=== PATIENT | female | born 1960 | race Caucasian/White ===

== ENCOUNTER → 2020-08-23 09:56 | Outpatient (BNVA) | payer MEDICARE, SELFPAY | PROVIDERS: PCP Nurse Practitioner Family; Referring Provider Orthopaedic Surgery; Visit Provider Nurse Practitioner Adult Health | DX: G56.23 Lesion of ulnar nerve, bilateral upper limbs (principal); I10 Essential (primary) hypertension | CPT/HCPCS: 95910; 99203 ==

== ENCOUNTER 2021-01-08 03:36 | Outpatient (CLI) | payer MEDICARE, SELFPAY ==
[2021-01-08 12:33] LABS: Calculated LDL 87 mg/dL (<100); Cholesterol 179 mg/dL (<200); HDL Cholesterol 63 mg/dL (40-60); Triglyceride 147 mg/dL (<150)
[2021-01-08 12:40] LABS: Hemoglobin A1C 5.7 % (<5.7)
== END 2021-01-08 03:37 | disposition home or self-care (01) ==
LOC: LOS 03:36
PROVIDERS: PCP Nurse Practitioner Family; Visit Provider Nurse Practitioner Family
DX: E78.5 Hyperlipidemia, unspecified (principal); R73.9 Hyperglycemia, unspecified
CPT/HCPCS: 36415; 80061; 83036

== ENCOUNTER 2021-03-23 03:34 | Outpatient (CLI) | payer MEDICARE, SELFPAY ==
--- NOTE | 2021-03-23 | DI.CT_ITS ---
Exam(s) CT NECK W EXAM: CT NECK W CLINICAL HISTORY: ASYMMETRIC TONSILS, J35.8 TECHNIQUE: COMPARISON: No exams were available for comparison FINDINGS: CT examination of the cervical region was performed with bolus infusion of 100 cc of Omnipaque 350. Images obtained through the lung apices are unremarkable. Visualized portions of aortic arch and pul monary arterial vasculature appear normal. No superior mediastinal adenopathy. Visualized portions of the brain are unremarkable. The orbital contents appear normal. Paranasal si nuses and mastoid air cells are clear as visualized. There is no abnormality seen involving the salivary glands. Unremarkable appearance of the tonsils a nd tracheal laryngeal structures. No tonsillar mass or abscess identified. No vascular abnormality seen. No supraclavicular adenopathy. No cervical adenopathy. IMPRESSION: Negative CT examination of the cervical region, no evidence of a tonsillar mass or abscess. If there is a high clinical suspicion of tonsillar mass direct visualization and/or biopsy may be considered. RADIATION DOSE DELIVERED: 592mGy.cm Total DLP RADIATION OPTIMIZATION: All CT scans at this facility use at least one of these dose optimization te chniques: automated exposure control; mA and/or kV adjustment per patient size (includes targeted exa ms where dose is matched to clinical indication); or iterative reconstruction.
[2021-03-23 14:44] LABS: BUN 24 mg/dL (7-18); CREATININE 1.1 mg/dL (0.55-1.02)
[2021-03-23] MEDS: Omnipaque 350 MG/ML 100 ML BTL IV (15:05)
[2021-03-23] MEDS: Normal Saline - Diluent 50 ML VIAL IV (15:07)
[2021-03-23] MEDS: Normal Saline Flush 10 ML SYR IVP (15:08)
[2021-03-27 14:00] LABS: SS-A Antibody 1.7 Units (<20.0)
[2021-03-27 14:03] LABS: SS-B (La) Ab, IgG 2.2 Units (<20.0)
== END 2021-03-23 03:54 ==
PROVIDERS: PCP Nurse Practitioner Family; Visit Provider Physician Assistant
DX: J35.8 Other chronic diseases of tonsils and adenoids (principal); K11.7 Disturbances of salivary secretion
CPT/HCPCS: 70491; 84520; 82565; 86235; J3490

== ENCOUNTER 2021-08-02 02:33 | Outpatient (CLI) | payer MEDICARE, SELFPAY ==
[2021-08-02 13:04] LABS: TSH 1.18 uIU/mL (0.36-3.74)
[2021-08-02 13:14] LABS: Hemoglobin A1C 5.6 % (<5.7)
[2021-08-02 13:15] LABS: Vitamin B12 319 pg/mL (193-986)
[2021-08-02 13:16] LABS: Vitamin D 25 Total 18.1 ng/mL (30-100)
== END 2021-08-02 02:34 | disposition home or self-care (01) ==
LOC: LOS 02:34
PROVIDERS: PCP Nurse Practitioner Family; Visit Provider Family Medicine
DX: Z79.899 Other long term (current) drug therapy; G43.119 Migraine with aura, intractable, without status migrainosus; R20.2 Paresthesia of skin; R63.5 Abnormal weight gain; Z13.1 Encounter for screening for diabetes mellitus
CPT/HCPCS: 36415; 82306; 82607; 83036; 84443

== ENCOUNTER 2021-08-27 01:59 | Outpatient (CLI) | payer MEDICARE, SELFPAY ==
[2021-08-27 12:40] LABS: Abs Immature Grans 0.01 10^3/uL (0.0-0.06); Absolute Basophil Count 0.03 10^3/uL (0.0-0.2); Absolute Eosinophil Count 0.17 10^3/uL (0.0-0.7); Absolute Lymphocyte Count 0.95 10^3/uL (1.2-3.4); Absolute Monocyte Count 0.42 10^3/uL (0.1-0.8); Absolute Neutrophil Count 3.52 10^3/uL (1.2-6.7); Basophils % 0.6; Eosinophils % 3.3; HCT 36.1 % (36.0-46.0); HGB 11.1 g/dL (11.2-15.7); Immature Grans % 0.2; Lymphocytes % 18.6; MCH 29.4 pg (27.0-33.0); MCHC 30.7 % (32.0-36.0); MCV 95.8 fL (80-95); Monocytes % 8.2; Neutrophils % 69.1; Nucleated RBC 0 %; Platelet Count 200 10^3/uL (130-400); RBC 3.77 10^6/uL (3.93-5.22); RDW-SD 52.8 fL
[2021-08-27 13:07] LABS: Hemoglobin A1C 5.5 % (<5.7)
[2021-08-27 13:32] LABS: Vitamin D 25 Total 17.7 ng/mL (30-100)
[2021-08-27 13:49] LABS: ALT 17 U/L (14-59); AST 12 U/L (15-37); Albumin 3.7 g/dL (3.4-5.0); Alkaline Phosphatase 76 U/L (46-116); BUN 29 mg/dL (7-18); Bilirubin, Total 0.3 mg/dL (0.2-1.0); CREATININE 1.1 mg/dL (0.55-1.02); Calcium 8.7 mg/dL (8.5-10.1); Calculated LDL 103 mg/dL (<100); Chloride 110 mmol/L (98-107); Cholesterol 183 mg/dL (<200); Estimated GFR 50.33 (mL/min/1.73m2); Folate > 20.0 ng/mL (8.6-20.0); Glucose 103 mg/dL (74-106); HDL Cholesterol 61 mg/dL (40-60); Magnesium 1.8 mg/dL (1.8-2.4); Potassium 3.6 mmol/L (3.5-5.1); Sodium 146 mmol/L (136-145); TSH 1.31 uIU/mL (0.36-3.74); Total Protein 6.8 g/dL (6.4-8.2); Triglyceride 97 mg/dL (<150); Vitamin B12 289 pg/mL (193-986)
[2021-08-27 14:05] LABS: FREE T4 0.94 ng/dL (0.76-1.46)
[2021-08-27 16:31] LABS: T3,Free 2.9 pg/mL (2.8-5.3)
== END 2021-08-27 02:00 | disposition home or self-care (01) ==
LOC: LOS 01:59
PROVIDERS: PCP Nurse Practitioner Family; Visit Provider Psychiatry & Neurology Psychiatry
DX: Z79.899 Other long term (current) drug therapy (principal)
CPT/HCPCS: 36415; 80053; 80061; 82306; 82607; 82728; 82746; 83036; 83735; 84439; 84443; 84481; 85025; 86140

== ENCOUNTER 2021-09-28 00:38 | Outpatient (CLI) | payer MEDICARE, SELFPAY ==
--- NOTE | 2021-09-28 07:00 | DI.RAD_ITS ---
Exam(s) XR HIP RT COMPLETE AP PELVIS EXAM: XR HIP RT COMPLETE AP PELVIS CLINICAL HISTORY: right hip pain,M25.551, ACUTE. TECHNIQUE: 2D digital imaging was performed of the right hip. Two images were obtained. AP pelvis a nd lateral right hip views were obtained. COMPARISON: No exams were available for comparison FINDINGS: BONES: No acute fracture is present. No bony destructive lesion is seen. Postsurgical changes are see n in the lumbosacral spine. JOINTS: No dislocation present. There are mild degenerative changes of the hips bilaterally. There a lso mild degenerative changes seen at the sacroiliac joints. The symphysis pubis appears unremarkabl e. SOFT TISSUE: Normal. IMPRESSION: Mild degenerative changes in the hips bilaterally. DATA REPOSITORY: RADIATION DOSE DELIVERED:
== END 2021-09-28 00:58 ==
PROVIDERS: PCP Nurse Practitioner Family; Visit Provider Nurse Practitioner Family
DX: M25.551 Pain in right hip (principal)
CPT/HCPCS: 73502

== ENCOUNTER 2021-10-04 01:49 | Outpatient (CLI) | payer MEDICARE, SELFPAY ==
--- NOTE | 2021-10-04 10:02 | DI.MAMMO_ITS ---
Exam(s) MAMMO SCREENING EXAM: MAMMO SCREENING CLINICAL HISTORY: screening,Z12.39. TECHNIQUE: Bilateral full field digital CC and MLO mammographic images were obtained with 3D tomosyn thesis and utilizing computer aided detection (CAD). COMPARISON: Prior outside mammograms dating back to 2015, the most recent being August 2020. Significant family history. Apparently both her mother and sister were diagnosed with breast cancer at age 57. This patient is 61 years old. FINDINGS: There has been no significant change in the appearance and distribution of the fibroglandular tissue. There are no new significant radiograph findings in left breast In the right breast there is an asymmetric density-possible nodule located medial of center approxima tely 8 cm in from the nipple, measuring 6 x5 millimeters. This appears somewhat more evident on prio r studies. Spot compression view and ultrasound recommended. There are no malignant-appearing micro calcification groups in this region. Scattered benign-appearing microcalcifications are noted in the breasts. There is no significant architectural distortion nor skin thickening-retraction. IMPRESSION: 1. No radiographic evidence of malignancy in left breast. 2. Asymmetric density-possible nodule in the right breast, as described above. Spot compression view and ultrasound recommended BI-RADS Category 0 - Assessment Incomplete: Need additional imaging evaluation Breast Density - Category B - Scattered areas of fibroglandular density Breast density Category C or D implies that the patient has dense breast tissue. Dense breast tissue can make it harder to find cancer on a mammogram. Dense breast tissue is also associated with an incr eased risk of breast cancer. This information about the result of the mammogram report was provided to the patient to raise their awareness. Use this report when you speak with the patient about their risks for breast cancer, which includes their family history. At that time, you may recommend additional screening tests (Ultrasoun d or MRI) as these tests may add significant information. A negative radiographic report should not delay biopsy if a dominant or clinically suspicious mass is present. Up to ten percent of cancers are not identified on mammography. A negative report may reinforce clinical impression. Adenosis and dense breasts may obscure an underlying neoplasm. False positive reports average 6 to 10%. Patient will receive a letter notifying them of these results.
== END 2021-10-04 02:09 ==
PROVIDERS: PCP Nurse Practitioner Family; Visit Provider Nurse Practitioner Family
DX: Z12.31 Encounter for screening mammogram for malignant neoplasm of breast (principal); R92.8 Other abnormal and inconclusive findings on diagnostic imaging of breast
CPT/HCPCS: 77063; 77067

== ENCOUNTER 2021-10-16 01:56 | Outpatient (CLI) | payer MEDICARE, SELFPAY ==
--- NOTE | 2021-10-16 14:00 | DI.US_ITS ---
Exam(s) MG MAMMO SCREEN CALL BACK UNI US BREAST RT LIMITED EXAM: US BREAST RT LIMITED CLINICAL HISTORY: ASYMMETRIC DENSITY-POSSIBLE NODULE, RT BREAST TECHNIQUE: Ultrasound performed using standard protocol. COMPARISON: No exams were available for comparison FINDINGS: Additional mammographic views of the right breast and right breast ultrasound are interpreted in conj unction. These examinations were obtained to evaluate area of nodularity noted on recent mammogram. This had also been present on prior mammogram of August 2020 from [facility] but was s maller at that time. On today's examination the spot compression views confirm a persistent ovoid well-circumscribed mass in the lower inner quadrant of the breast. Some portions of the border of the mass were obscured. B reast ultrasound shows a 2 o'clock position nodule 8 cm from the nipple which is of mixed cystic and solid echogenicity with some heterogeneity of echogenicity and mild irregularity of the border of the lesion, the lesion is about 5 millimeters in diameter. No significant vascularity identified on Dop pler evaluation. IMPRESSION: Indeterminate right breast lesion as described above, ultrasound-guided biopsy recommended to exclud e malignancy. BI-RADS Cat 4 - Suspicious Abnormality: Biopsy should be considered Breast Density - Category B - Scattered areas of fibroglandular density DATA REPOSITORY:
== END 2021-10-16 02:16 ==
PROVIDERS: PCP Nurse Practitioner Family; Visit Provider Nurse Practitioner Family
DX: R92.8 Other abnormal and inconclusive findings on diagnostic imaging of breast (principal)
CPT/HCPCS: 76642; 77063; 77067

== ENCOUNTER 2021-10-29 01:51 | Outpatient (CLI) | payer MEDICARE, SELFPAY ==
--- NOTE | 2021-10-29 | DI.US_ITS ---
Exam(s) US NEEDLE LOCAL BREAST WO RAD EXAM: US NEEDLE LOCAL BREAST WO RAD CLINICAL HISTORY: RT BREAST MASS, ULTRASOUND GUIDED BIOPSY. Right Breast. Left Breast. TECHNIQUE: Ultrasound was p provided for Dr. León for guidance with performing breast biopsy. COMPARISON: US US BREAST RT LIMITED from 10/16/2021 FINDINGS: The lesion identified on the prior exam is again noted today in the 2 o'clock position 8 cm from the nipple. Please see procedure note for details.
--- NOTE | 2021-10-29 14:50 | BREAST_PTH ---
PATIENT: Alina Douglass LOC: [facility] U#:[id number] AGE/SX: 61/F ROOM: RE10/29/[address]: Rossy León MD : 1960 BED: DIS: 10/29/2021 SPEC #: [id number] RECD: 10/29/21 16:47 STATUS: BALDO REAlex #: [id number] DEONTE: 10/29/21 14:[address]: Rossy León DEPT: Surgical Specimen RECD BY: Deborah Boogie ENTERED: 10/29/21 16:47 SP TYPE: Breast OTHR DR: Husam Krishna, LEE Tissues: 1 - BREAST BX NEEDLE Procedures: GROSS AND MICRO LEVEL 4 Comments: [id number]
--- NOTE | 2021-10-29 15:02 | OPPNE_ITS ---
Date of service: 10/29/21 Time of Service: 14:30 Procedure Note Date of procedure: 10/29/21 Procedure: US guided right Breast Mass Core needle biopsy Surgeon/Proceduralist/Physician: Rossy León Procedure Diagnosis: Right Breast mass Procedure Description: Pre-op Dx: Right Breast Mass Post-op Dx: same Procedure: US guided Right Breast mass Core needle biopsy Surgeon: Donna León MD Anesthesia: Local anesthesia with 1% Lidocaine Blood loss: 2 cc Specimen: Core needle biopsy x2 Complications: no immediate complications Procedure: After informed consent was obtained the patient was placed in a supine position. US was done of the Right Breast and the lesion was localized by the US tech. The skin was cleaned with alcohol and infiltrated with the above local anesthetic. The skin was then prepped. An incision was made with an 11 blade. Using a 14 gauge core needle 2 specimens were removed and placed on telfa and placed in formalin. Next under US guidence a small titanium clip was placed into the lesion. The skin was cleaned and dried and a band aid was applied. The patient tolerated the procedure well and there were no i mmediate complications.
== END 2021-10-29 02:11 ==
PROVIDERS: PCP Nurse Practitioner Family; Visit Provider Surgery
DX: N63.12 Unspecified lump in the right breast, upper inner quadrant (principal); N60.01 Solitary cyst of right breast
CPT/HCPCS: 19083; 88305; 76942

== ENCOUNTER 2021-11-29 02:11 | Outpatient (CLI) | payer MEDICARE, SELFPAY ==
--- NOTE | 2021-11-29 | DI.CT_ITS ---
Exam(s) CT NECK W EXAM: CT NECK W CLINICAL HISTORY: NECK MASS, R22.1. TECHNIQUE: Imaging Protocol: Axial CT angiography was performed with multi-slice acquisition and mu lti-planar and/or 3D reconstructions. CONTRAST MATERIAL: Intravenous: Omnipaque 350 Contrast volume:structured data in ml COMPARISON: CT CT NECK W from 03/23/2021 FINDINGS: Nasopharynx: Unremarkable Oropharynx: The uvula is midline. No obvious asymmetric tonsil mass. No abscess seen. Hypopharynx: Vallecula and epiglottis appear unremarkable. Aryepiglottic folds unremarkable. Vocal cords: No evidence of mass. Subglottic airway also appears unremarkable. Thyroid gland: Normal size. No obvious nodules. Salivary glands: There are no masses nor calculi evident in the parotid glands nor in the submandibul ar glands. Lymph nodes: There is no pathologic lymphadenopathy evident in the neck and supraclavicular regions. Vascular: Opacified internal jugular veins are patent bilaterally. Carotid arteries are not opacifie d on this study. TANO: There is a metallic marker on the skin on the left side of the neck. There is no evidence of saldana bcutaneous nor deeper mass nor fluid collection at this level. Also no asymmetric thickening of the platysma at this level. Visualized lung apices: Unremarkable. IMPRESSION: 1. No significant findings on this contrast infused study of the soft tissues of neck. 2. There is no abnormal finding subjacent to a metallic skin marker on the left side of the neck. RADIATION DOSE DELIVERED: 519.02mGy.cm Total DLP DATA REPOSITORY: All CT scans at this facility are submitted to the National Radiology Data Registry (NRDR) Dose Index Registry (DIR) with the [employer] ([employer]). RADIATION OPTIMIZATION: All CT scans at this facility use at least one of these dose optimization te chniques: automated exposure control; mA and/or kV adjustment per patient size (includes targeted exa ms where dose is matched to clinical indication); or iterative reconstruction.
[2021-11-29 07:44] LABS: BUN 29 mg/dL (7-18); CREATININE 1.3 mg/dL (0.55-1.02)
[2021-11-29] MEDS: Omnipaque 350 MG/ML 100 ML BTL IJ (08:31)
== END 2021-11-29 02:31 ==
PROVIDERS: PCP Nurse Practitioner Family; Visit Provider Physician Assistant
DX: R22.1 Localized swelling, mass and lump, neck (principal); Z01.812 Encounter for preprocedural laboratory examination
CPT/HCPCS: 70491; 84520; 82565; J3490

== ENCOUNTER → 2022-01-30 08:16 | Outpatient (BNVA) | payer MEDICARE, SELFPAY | PROVIDERS: PCP Nurse Practitioner Family; Referring Provider Nurse Practitioner Family; Visit Provider Student in an Organized Health Care Education/Training Program | DX: S73.191A Other sprain of right hip, initial encounter (principal); X58.XXXA Exposure to other specified factors, initial encounter; M70.61 Trochanteric bursitis, right hip; M16.11 Unilateral primary osteoarthritis, right hip | CPT/HCPCS: 99214 ==

== ENCOUNTER 2022-02-01 02:34 | Outpatient (CLI) | payer MEDICARE, SELFPAY ==
[2022-02-01 17:06] LABS: COMMENT (LAB VIEW ONLY) 156.09 mg/dL; CREATININE 1.3 mg/dL (0.55-1.02); Microalb ug/mg Crea 5.3 ug/mg Cr
== END 2022-02-01 02:35 | disposition home or self-care (01) ==
LOC: LBO 02:34
PROVIDERS: PCP Nurse Practitioner Family; Visit Provider Nurse Practitioner Family
DX: N18.9 Chronic kidney disease, unspecified (principal)
CPT/HCPCS: 36415; 82043; 82565; 82570

== ENCOUNTER 2022-02-04 01:24 | Outpatient (CLI) | payer MEDICARE, SELFPAY ==
--- NOTE | 2022-02-04 | DI.MAMMO_ITS ---
Exam(s) MAMMO DIAGNOSTIC UNI US BREAST RT COMPLETE EXAM: MAMMO DIAGNOSTIC UNI CLINICAL HISTORY: RIGHT BREAST ? BX NOT OF MASS. COMPARISON: Mammograms from 2016 through September 2021 Ultrasound September 2021 and ultrasound-guided biopsy images of 29 October 2021. TECHNIQUE: Craniocaudal and mediolateral oblique Full Field Digital Mammography views of the right b reast with Computer Aided Diagnosis followed by Tomosynthesis and right breast ultrasound. FINDINGS: Mammography/Tomosynthesis: Masses/Architectural Distortion: A biopsy marker clip is noted is lying anterior to the previously no jem nodule. There has been no change in size or appearance of the nodule.. Microcalcifications: No suspicious pleomorphic-type are seen. Skin Thickening/Nipple Retraction: None. Right breast US: Echotexture: Normal appearance of the glandular tissue. Shadowing: No suspicious foci. Cyst: None. Solid lesions: Vague hypoechoic lesion, not easily discernible from adjacent tissue without harmonics , measured at 6 x 5 millimeters. The previously noted cystic component of the lesion is not seen. Ductal dilation: None. IMPRESSION: 1. Biopsy marker lies anterior to the biopsied nodule. This could indicate clip migration versus mis sing the target lesion. 2. BI-RADS Category 3 - Probably Benign Finding: Recommend follow-up imaging in 3 months Breast Density - Category B - Scattered areas of fibroglandular density Breast density category C or D implies that the patient has dense breast tissue. Dense breast tissue is very common and is not abnormal but dense breast tissue can make it harder to find cancer on a ma mmogram. Also, dense breast tissue may increase their breast cancer risk. This information about the result of the mammogram report was provided to the patient to raise their awareness. Use this report when you speak with the patient about their risks for breast cancer, which includes their family hist ory. At that time, you may recommend for more screening tests (Ultrasound or MRI) as they might be us eful based on their risk. A negative radiographic report should not delay biopsy if a dominant or clinically suspicious mass is present. Up to ten percent of cancers are not identified on mammography. A negative report may reinforce clinical impression. Adenosis and dense breasts may obscure an underlying neoplasm. False positive reports average 6 to 10%. Patient will receive a letter notifying them of these results.
== END 2022-02-04 01:44 ==
PROVIDERS: PCP Nurse Practitioner Family; Visit Provider Surgery
DX: N63.12 Unspecified lump in the right breast, upper inner quadrant (principal); Z98.890 Other specified postprocedural states
CPT/HCPCS: 76642; 77061; 77065; G0279

== ENCOUNTER 2022-02-14 02:04 | Outpatient (CLI) | payer MEDICARE, SELFPAY ==
--- NOTE | 2022-02-14 06:45 | DI.MRI_ITS ---
Exam(s) MR LOWER JOINT RT WO EXAM: MR LOWER JOINT RT WO CLINICAL HISTORY: R HIP PAIN,labral tear,trochanteric bursitis,m70.61,s73.191a. TECHNIQUE: Multiplanar multisequence MRI was performed. COMPARISON: No exams were available for comparison FINDINGS: MR examination of the hip was performed according to the usual protocol. No pelvic mass or adenopathy seen. No significant bony signal abnormality seen. No significant hip joint effusion, the labrum appears i ntact as visualized on this noncontrast study. There is abnormal signal in gluteus minimus and medius tendons with partial tearing and tendinosis ne ar their insertions on the greater trochanter. There is a small quantity of fluid in the trochanteri c bursa. There is abnormal signal in gluteus ayush muscle and tendon as well without an obvious te ar. Note is also made of abnormal signal in vastus intermedius and/or lateralis which may represent infla mmation or tearing at and inferior to the level of the greater trochanter. No other significant findings. Left hip imaging is unremarkable except for apparent slight trochanteric bursitis. High-resolution i maging of the left hip was not obtained.. IMPRESSION: Gluteus medius and minimus tendon partial-thickness tearing without retraction, trochanteric bursitis and gluteus ayush tendinosis also noted. Possible involvement also of superior-most portions of v astus intermedius and/or lateralis with inflammation or minor partial thickness tearing as described above. DATA REPOSITORY:
== END 2022-02-14 02:24 ==
PROVIDERS: PCP Nurse Practitioner Family; Visit Provider Student in an Organized Health Care Education/Training Program
DX: M25.551 Pain in right hip (principal); M70.61 Trochanteric bursitis, right hip; S73.191A Other sprain of right hip, initial encounter
CPT/HCPCS: 73721

== ENCOUNTER → 2022-02-26 14:23 | Outpatient (BNVA) | payer MEDICARE, SELFPAY | PROVIDERS: PCP Nurse Practitioner Family; Referring Provider Nurse Practitioner Family; Visit Provider Student in an Organized Health Care Education/Training Program | DX: M70.61 Trochanteric bursitis, right hip (principal); M76.31 Iliotibial band syndrome, right leg; S76.011A Strain of muscle, fascia and tendon of right hip, initial encounter; X58.XXXA Exposure to other specified factors, initial encounter | CPT/HCPCS: 99214 ==

== ENCOUNTER 2022-03-13 04:14 | Outpatient (CLI) | payer MEDICARE, SELFPAY ==
[2022-03-13 10:10] LABS: Source Nasal/Nares
[2022-03-13 14:15] LABS: COVID-19 PCR Negative (Negative)
== END 2022-03-13 04:15 | disposition home or self-care (01) ==
PROVIDERS: PCP Nurse Practitioner Family; Visit Provider Student in an Organized Health Care Education/Training Program
DX: Z20.822 Contact with and (suspected) exposure to COVID-19 (principal); Z01.818 Encounter for other preprocedural examination
CPT/HCPCS: 87635; U0005

== ENCOUNTER 2022-03-15 08:07 | Day surgery (SDC) | payer MEDICARE, SELFPAY ==
[2022-03-15] VITALS (9 sets, daily range): BP systolic 116–152; BP diastolic 54–94; PULSE 47–77; RESP 10–17; TEMP 36.2–36.5; TEMPC 36.3; O2SAT 94–98; BMI 43.0
--- NOTE | 2022-03-15 08:48 | W.ANESPRE ---
General Info Date of Service Date Performed: 03/15/22 Height: 5 ft 4 in Weight: 113.7 kg Body Mass Index (BMI): 43.0 Surgical Procedure: Operation Date: 03/15/22 10:35 Proposed Procedure Side Surgeon p Hip Endoscopy Iliotibial Band Release w/Trochanteric Bursectomy and Gluteal Tendon Repair Right John Estevez MD Meds Allergies and Home Medications Allergies Allergy/AdvReac Type Severity Reaction Status Date / Time morphine Allergy Verified 03/15/22 08:39 Home Medication Medication Instructions Recorded clobetasol 0.05 % topical cream 1 applic topical DAILY 07/10/20 hydroxyzine pamoate 25 mg capsule 25 mg PO TID PRN 07/10/20 bupropion HCl 300 mg 24 hr tablet, 300 mg PO QAM #90 tabs 05/24/21 extended release prazosin 2 mg capsule 2 mg PO QHS #90 caps 05/24/21 zolpidem 10 mg tablet 10 mg PO QHS PRN sleep #90 tabs 10/15/21 fluoxetine 20 mg capsule (Prozac) 30 mg PO DAILY 11/05/21 topiramate 200 mg tablet 300 mg PO DAILY 11/05/21 cetirizine 10 mg tablet 10 mg PO DAILY #90 tabs 11/23/21 loperamide 2 mg capsule 2 mg PO Q6H PRN loose stool #14 11/23/21 caps omeprazole 20 mg capsule,delayed 20 mg PO DAILY #90 caps 11/23/21 release rizatriptan 10 mg disintegrating See Rx Instructions PO .COMPLEX 11/23/21 tablet #60 tabs simvastatin 10 mg tablet 10 mg PO DAILY #90 tabs 11/23/21 verapamil 180 mg 24 hr 180 mg PO DAILY #90 caps 11/23/21 capsule,extended release metoprolol succinate 25 mg 25 mg PO DAILY #90 tabs 12/27/21 tablet,extended release 24 hr Current Visit Medications: Current Medications Generic Name Dose Route Start Last Admin Trade Name Freq PRN Reason Stop Dose Admin Ringer's Solution 1,000 mls @ 100 mls/hr 03/15/22 06:00 IV 03/19/22 23:59 INFUSION JENNIFER Cefazolin Sodium 3 gm in 100 mls @ 200 mls/hr 03/15/22 06:00 Ancef Premix IVPB 03/15/22 16:00 PREOP JENNIFER IV Miscellaneous Supplies 1 each 03/15/22 06:00 Iv Access IV 03/19/22 23:59 DIRECTED JENNIFER Sodium Chloride 0 ml 03/15/22 06:00 Normal Saline Flush 10 Ml Syr IV 03/19/22 23:59 PRN PRN Sodium Chloride 0 ml 03/15/22 06:00 Normal Saline 10 Ml Vial IJ 03/19/22 23:59 DIRECTED PRN Sterile Water 0 ml 03/15/22 06:00 Water,Injection,Sterile 10 Ml Vial IJ 03/19/22 23:59 DIRECTED PRN PFSH Active Problems Active Problems: Problem Status Onset Code Depressive disorder F32.9 Insomnia G47.00 Hypertension I10 Cubital tunnel syndrome, bilateral G56.23 Hyperlipidemia E78.5 Scab R23.4 Asymmetric tonsils J35.8 Low back pain M54.5 Wart B07.9 Weight gain R63.5 Intractable migraine with aura without status migrainosus G43.119 Abnormal mammogram R92.8 Breast mass, right N63.10 Left knee pain M25.562 Arthritis of right hip M16.11 Chronic renal insufficiency N18.9 Trochanteric bursitis of right hip M70.61 Labral tear of right hip joint S73.191A Iliotibial band syndrome of right side M76.31 Tear of right gluteus medius tendon S76.011A Medical History Medical History Atopic dermatitis Congenital anomaly of integument Eating disorder Fibrocystic breast disease in female Fibromyalgia Generalized anxiety disorder GERD (gastroesophageal reflux disease) History of back problems History of palpitations Hyperlipidemia Inflammatory dermatosis Jaw pain Knee pain, left Left hip pain (~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 Loss of appetite Lumbago with sciatica, right side Malaise and fatigue Microscopic colitis Mixed hyperlipidemia Obesity Osteoarthritis of knee Primary osteoarthritis PTSD (post-traumatic stress disorder) Retrograde amnesia Rotator cuff injury (~03/07/20) left Salivary gland disease Sialoadenitis Tinea corporis Well adult health check Surgical History Surgical History (Updated 03/15/22 @ 08:38 by Gilma Weaver, MADDI) Artificial knee joint present H/O abdominal hysterectomy (~1985) H/O bilateral salpingo-oophorectomy (~1985) H/O foot surgery (~2007) LEFT H/O hernia repair H/O total knee replacement 03/03/17 (L) 08/31/10 (R) History of back surgery (~2000) 2000 SPINAL FUSION: L5, S1 WITH METAL History of cholecystectomy (~02/23/11) History of right knee joint replacement History of surgical procedure on mouth (~10/20/17) LEFT Hx of colonoscopy Hx of repair of left rotator cuff Hx of shoulder surgery (~03/07/20) 03/07/20L SHOULDER ARTHROSCOPY W/RCR S/P injection of botulinum toxin (~01/10/17) @ [facility] [place] [facility] [place] Tobacco Smoking/Tobacco Use Status: Former Tobacco Use Passive smoking exposure: Yes Second hand exposure: Yes Alcohol Alcohol Intake: never Substance Use Substance use: Never Substance use type: does not use Vital Signs and Lab Results Vital Signs Most Recent Vital Signs in EMR: Most Recent Vital Signs Temp Pulse Resp BP Pulse Ox 36.4 C L 66 17 125/88 98 03/15/22 08:25 03/15/22 08:25 03/15/22 08:25 03/15/22 08:25 03/15/22 08:25 Lab Results Blood Type / Crossmatch: No Data to Display Complete Blood Count: No Data to Display Complete Metabolic Panel: No Data to Display Liver Function Panel: No Data to Display Coagulation Panel: No Data to Display Cardiac Panel: No Data to Display Arterial Blood Gas: No Data to Display Venous Blood Gas: No Data to Display Pancreas Panel: No Data to Display Thyroid Panel: No Data to Display Infectious Disease: Coronavirus (COVID-19)(PCR) Negative (Negative) 03/13/22 09:54 Coronavirus 2019 Source Nasal/Nares 03/13/22 09:54 Blood Cultures: No Data to Display Toxicology Panel: No Data to Display Imaging and Studies Imaging and Studies Study information below may be from another EMR and interpreted by another provider. Please see original notes in EMR for more complete details. EKG Summary: Conclusion Sinus or ectopic atrial rhythm...P axis (-45,135) Probable left atrial enlargement...P >50mS, <-0.10mV V1 Nonspecific T abnormalities, lateral leads...T <-0.10mV, I aVL V5 V6 Anesthesia Assessment and Plan Anesthesia History Personal History: No History of Anesthesia Complications Family History: No Family History of Anesthesia Complications Exercise Tolerance Exercise Tolerance: Metabolic Equivalents>4 Pertinent Negatives Pertinent Negatives: No Symptoms of GERD, No Major Cardiovascular Symptoms or Complaints, No Major Pulmonary Symptoms or Complaints and No History of CVA/TIA Cardiac & Pulmonary Exam Cardiac Exam: Normal S1/S2 Heart Sounds Pulmonary Exam: Clear Bilateral Breath Sounds Implantable Cardiac Device Does patient have a Pacemaker or an ICD?: No Airway Exam Known Difficult Airway: No Mallampati Class: 3 Mouth Opening: Normal (> 3cm) Thyromental Distance: Greater than 3 cm Neck Range of Motion: Full ROM Neck Circumference: Normal Teeth Condition: Removable Dentures/Plates Upper and Removable Dentures/Plates Lower ASA Classification ASA Score: ASA 3 Emergency Case?: No NPO Status NPO Status: NPO Clears >2 hours, Solids >8 hours Anesthesia Plan Resuscitation Status: Full Code Anesthesia Technique: General Anesthesia Airway Planned: Endotracheal Tube Monitors Used: Standard Monitors
[2022-03-15] MEDS: Lactated Ringers 1,000 ML 100 ML IV (08:59)
[2022-03-15] MEDS: Bupivacaine 0.5% Pres-Free W/EPI 10 ML VIAL (12:49)
--- NOTE | 2022-03-15 13:10 | DI.RAD_ITS ---
Exam(s) XR HIP RT IN OR EXAM: XR HIP RT IN OR CLINICAL HISTORY: RIGHT HIP TROCHANTERIC BURSITIS. TECHNIQUE: 2D and realtime digital imaging was performed. COMPARISON: CR XR HIP RT COMPLETE AP PELVIS from 09/28/2021 FINDINGS: Fluoro time 12.7 seconds Please see procedure note for details. RADIATION DOSE DELIVERED: Maliar=2.3 mGy
--- NOTE | 2022-03-15 13:22 | W.PM.DSUDISC ---
Discharge Plan Disposition Patient Disposition: HOME Condition: Stable Discharge Details Reason For Visit: Right hip surgery Attending Provider: John Estevez Primary Care Provider: Husam Krishna Home Meds and New Rx's Prescriptions: New aspirin 81 mg tablet,delayed release (DR/EC) 81 mg PO DAILY 14 Days Qty: 14 0RF oxycodone 5 mg tablet 5 - 10 mg PO Q4H MDD 30 mg PRN (Reason: moderate to severe pain) Qty: 12 0RF Continued fluoxetine [Prozac] 20 mg capsule 30 mg PO DAILY prazosin 2 mg capsule 2 mg PO QHS Qty: 90 4RF bupropion HCl 300 mg tablet extended release 24 hr 300 mg PO QAM Qty: 90 4RF topiramate 200 mg tablet 300 mg PO DAILY clobetasol 0.05 % cream 1 applic topical DAILY hydroxyzine pamoate 25 mg capsule 25 mg PO TID PRN zolpidem 10 mg tablet 10 mg PO QHS PRN (Reason: sleep) Qty: 90 0RF cetirizine 10 mg tablet 10 mg PO DAILY Qty: 90 3RF loperamide 2 mg capsule 2 mg PO Q6H PRN (Reason: loose stool) Qty: 14 0RF omeprazole 20 mg capsule,delayed release(DR/EC) 20 mg PO DAILY Qty: 90 3RF rizatriptan 10 mg tablet,disintegrating See Rx Instructions PO .COMPLEX Qty: 60 0RF Rx Instructions: take 1 tab at onset of headache; if no relief may repeat 1 tab after at least 2 hrs; max = 3 tabs/24 hr PO simvastatin 10 mg tablet 10 mg PO DAILY Qty: 90 4RF verapamil 180 mg capsule,ext rel. pellets 24 hr 180 mg PO DAILY Qty: 90 3RF metoprolol succinate 25 mg tablet extended release 24 hr 25 mg PO DAILY Qty: 90 3RF Discharge Instructions Additional Instructions: Surgery: Right hip endoscopy with iliotibial band release and trochanteric bursectomy Activity: Weightbearing as tolerated. May use crutches or walker as needed for a few days. Gradually advance to full range of motion and activity over the next few weeks. A physical therapy prescription will be provided separately in the office at follow up if needed. Prescriptions: Aspirin 81 mg take 1 daily to prevent a blood clot for 2 weeks Oxycodone 5 mg take 1-2 every 4-6 hours as needed for severe pain You may use [id number] Tylenol (acetaminophen) as needed for mild pain. These pain medications may be taken all at once or in different combinations as needed. Also, recommend Colace (docusate) as a stool softener as surgery and pain medicine cause constipation. You may try [id number] diphenhydramine (Benadryl) 25-50 mg nightly as a sleep aid Dressings: Leave dressing in place for 3 days. May then remove and leave open to air or cover incisions with Band-Aids. May shower after 5 days. Follow-up: 10-[address] Estevez Let us know right away if you develop any redness, drainage, fevers, chest pain, or trouble breathing. Do not drink alcohol or drive for at least 24 hours after anesthesia. Please call the office during business hours with any questions or concerns. Discharge Orders Discharge Orders: Discharge Order (Routine); Ordered 03/15/22 Ordered By: John Estevez DS: Diagnosis Discharge Diagnosis (1) Iliotibial band syndrome of right side: Status: Acute (2) Trochanteric bursitis of right hip: Status: Acute
[2022-03-15] MEDS: EPINEPHrine 30 MG/30 ML VIAL (13:25)
--- NOTE | 2022-03-15 13:26 | ROE_ITS ---
Operative Note Operative Note DATE OF PROCEDURE: 03/15/22 PRE-OP DIAGNOSIS: Right 1. Iliotibial band syndrome 2. Trochanteric bursitis 3. Gluteal tendon tear POST-OP DIAGNOSIS: same PROCEDURE: Right hip endoscopic iliotibial band release (CPT# 79149) and trochanteric bursectomy (CPT# 27350) SURGEON: John Estevez PROVISIONING SPECIALIST: Steff Prado ANESTHESIA TYPE: Local By Surgeon and General LMA/ETT Refer to Anesthesia Record ESTIMATED BLOOD LOSS: 5 COMPLICATIONS: None Patient was transported to: PACU Patient's condition: stable Indications: Please see complete medical record for details. Findings: Thickened iliotibial band. Abundant inflamed trochanteric bursitis. Gluteus medius and minimus tendinosis with no significant tearing or hypermobility. Intact vastus lateralis and gluteus ayush tendons. Procedure Description: In the operating room, general anesthesia was induced. The patient was positioned supine on the [place] operating room table. All bony prominences were well-padded. Preoperative antibiotics were administered. The hip was prepped and draped in the usual sterile fashion. The correct patient, procedure, and side of the procedure were all verified prior to incision. 30 cc of 0.5% bupivacaine containing epinephrine was infiltrated about the subcutaneous tissues for the planned anterior lateral and distal anterolateral portals as well as deeply over the greater trochanter. A knife was used to incise the skin for the anterior lateral and distal anterolateral portals followed by blunt dissection subcutaneously. Under fluoroscopic guidance, a switching stick and arthroscope were inserted localizing the iliotibial band over the greater trochanter. Blunt dissection and the mechanical shaver were used to resect fat and overlying tissue about the center of the iliotibial band and carefully expose the anterior and posterior margins. Once there was ad equate exposure of the IT band, the greater trochanter was again localized under fluoroscopic guidance with a spinal needle inserted through the skin down to bone. This central area was marked using the radiofrequency ablator. A Devens blade was brought in and used to create a 2 cm longitudinal incision in line with the IT band fibers as well as extending it in a cruciate fashion with 2 cm incisions anteriorly and posteriorly. The radiofrequency ablator was used to achieve hemostasis. The mechanical shaver was then used to debride the IT band released edges exposing the trochanteric bursa. The mechanical shaver was then used to excise the trochanteric bursa taking care to protect musculature about the margins of the greater trochanter as well as neurovascular structures especially posteriorly. There was excellent visualization of the vastus lateralis as well as gluteus medius confirming appropriate bursa excision. The hip was brought through range of motion including internal and external rotation and there was no impinging iliotibial band tissue or remaining pathologic bursa. The viewing and working portals were switched and appropriate IT band release, trochanteric bursa excision, and hemostasis confirmed. After thorough inspection, there was no visible gluteal tendon tear that required repair. Suction was used to remove fluid from the endoscopic space. The portals were closed using 3-0 Monocryl in a buried fashion. Steri-Strips were applied over the incisions followed by Xeroform, 4 x 4 gauze, an ABD pad, and secured with tape. The patient awoke from anesthesia without complication and was transferred to the recovery room in a stable condition.
[2022-03-15] MEDS: fentaNYL 100 MCG/2 ML VIAL IVP (13:45)
--- NOTE | 2022-03-15 14:14 | W.ANESPOSTOP ---
Postoperative Evaluation Date, Time and Location Date Performed: 03/15/22 Time Performed: 14:14 Patient Location: Day Surgery Unit Vital Signs Most Recent Imported Vital Signs: Most Recent Vital Signs Temp Pulse Resp BP Pulse Ox 36.4 C L 47 L 14 152/69 H 97 03/15/22 14:05 03/15/22 14:05 03/15/22 14:05 03/15/22 14:05 03/15/22 14:05 Most Recent Manually Entered Vital Signs: Adult Blood Pressure: 138/73 Heart Rate: 77 Respirations: 12 Oxygen Saturation (%): 97 Temperature (C): 36.3 C Pain Score (0-10 Scale): 0 Pain Score Most Recent Pain Score: Most Recent Pain Score Pain Level 5 03/15/22 14:05 Assessment Mental Status: Awake (Alert & Oriented to Patient Baseline) Airway and Respiratory Function: Patent airway with normal (patient baseline) respiratory exam Cardiovascular Function: Hemodynamically Stable Hydration Status: Adequately Hydrated Nausea & Vomiting: No Nausea or Vomiting Pain: Pain is tolerable per patient Peripheral Nerve Block: Patient did not receive a nerve block
[2022-03-15] MEDS: oxyCODONE 5 MG TAB PO (14:54)
== END 2022-03-15 15:05 | disposition home or self-care (01) ==
PROVIDERS: PCP Nurse Practitioner Family; Visit Provider Student in an Organized Health Care Education/Training Program
PROC: (CPT 29863; principal; 2022-03-15 10:15)
DX: M70.61 Trochanteric bursitis, right hip (principal); M76.31 Iliotibial band syndrome, right leg; K21.9 Gastro-esophageal reflux disease without esophagitis; M79.7 Fibromyalgia; E78.5 Hyperlipidemia, unspecified; N18.9 Chronic kidney disease, unspecified; I12.9 Hypertensive chronic kidney disease with stage 1 through stage 4 chronic kidney disease, or unspecified chronic kidney disease
CPT/HCPCS: 27062; 27305; 73501; J1100; J2370; J2405; J3010

== ENCOUNTER 2022-03-19 08:50 | Inpatient (IN) | payer MEDICARE, SELFPAY ==
[2022-03-19] VITALS (40 sets, daily range): BP systolic 97–147; BP diastolic 49–80; PULSE 78–97; RESP 17–38; TEMP 36.4–38.2; O2SAT 89–99
--- NOTE | 2022-03-19 | DI.US_ITS ---
Exam(s) US LOWER EXTREMITY VENOUS RT EXAM: US LOWER EXTREMITY VENOUS RT CLINICAL HISTORY: elevated d-dimer, recent surgical procedure on leg TECHNIQUE: Grayscale, color, and doppler imaging of the deep venous system of the right lower extrem ity was performed. COMPARISON: US US BREAST RT COMPLETE from 02/04/2022 FINDINGS: There is no evidence of intraluminal thrombus and there is normal compression and augmentation demons trated within the common femoral vein, femoral vein, and popliteal vein. In the ipsilateral calf the interrogated veins also exhibit normal compression/ augmentation properti es. The ipsilateral saphenofemoral junction is patent. IMPRESSION: 1. No evidence of DVT in the right lower extremity. DATA REPOSITORY:
--- NOTE | 2022-03-19 | DI.CT_ITS ---
Exam(s) CT CHEST PE CTA EXAM: CT CHEST PE CTA CLINICAL HISTORY: hemoptysis, elevated d-dimer. TECHNIQUE: Imaging Protocol: Axial CT angiography was performed with multi-slice acquisition and mu lti-planar and/or 3D reconstructions. CONTRAST MATERIAL: Intravenous: Omnipaque 350 Contrast volume:structured data in ml COMPARISON: No exams were available for comparison FINDINGS: CT angiography of the chest was performed with intravenous infusion of 100 cc of Omnipaque 350. There are ground-glass and consolidative a opacities predominantly involving right lung but also invo lving portions of left upper lobe period there are small bilateral pleural effusions, left greater th an right.. Tracheobronchial tree appears intact. No evidence of pulmonary embolic disease although examination is somewhat limited. Thoracic aorta is of normal diameter, no thoracic aortic aneurysm or dissection, major branch vessels appear intact. No mediastinal or hilar adenopathy. Images obtained through the upper abdomen show unremarkable appearance of the visualized portions of the liver, spleen, pancreas, adrenals, and kidneys. IMPRESSION: No evidence of pulmonary embolic disease. Findings suggesting multifocal pneumonitis.. RADIATION DOSE DELIVERED: 618.49mGy.cm Total DLP 618.49mGy.cm Total DLP !Error CTDIvol DATA REPOSITORY: All CT scans at this facility are submitted to the National Radiology Data Registry (NRDR) Dose Index Registry (DIR) with the [employer] (ACR). RADIATION OPTIMIZATION: All CT scans at this facility use at least one of these dose optimization te chniques: automated exposure control; mA and/or kV adjustment per patient size (includes targeted exa ms where dose is matched to clinical indication); or iterative reconstruction.
--- NOTE | 2022-03-19 09:00 | RT.EKG_ITS ---
APPROVED REPORT Exam: Resting ECG Reason for Exam: sob Patient Location: E HR:89 bpm ECG Measurements Heart Rate 89 AXIS SC 182 P 57 QRSd 98 QRS -16 QT 408 T 44 QTc 498 Conclusion Sinus rhythm...normal P axis, V-rate 60- 99
--- NOTE | 2022-03-19 09:16 | W.ED.GENAD ---
Discharge Plan Disposition Patient Disposition: [facility] INPATIENT Condition: Improving Discharge Details Clinical Impression: Pneumonia, Hypoxia Admit Date/Time: 03/19/22 12:01 Admit Provider: Felipe Maddox Attending Provider: Felipe Maddox Primary Care Provider: Husam Krishna ED Provider: Regino Rodriguez Discharge Data Discharge Date/Time-TO BE ENTERED AT DEPARTURE: 03/19/22 14:09 Medical Decision Making 61yof s/p R IT band release with Dr Estevez 03/15 w general anesthesia, presents with cough and exertional dyspnea that began the evening after surgery. + Subj fever at home, some blood tinged sputum. She has been taking ASA alexandru in the perioperative period. Arrives with RA hypoxia of 88-89%, improved with 2L NC O2. Her work of breathing is slightly increased. She has diminished but audible rhonchi on exam. No symptoms of pneumonia, 6 with PE. Patient IV access established with initiated, screening EKG and lab obtained. Labs show white count of 11.2 with left shift present. BUN 22 creatinine 1.2. Troponin is negative. D-dimer is elevated at 1259. Chest x-ray reveals right-sided infiltrate with nodular infiltrate in the mid left lung. Consistent with predominantly right sided pneumonia. Case discussed with the admitting hospitalist team including consideration of further chest imaging, we will defer this at this time in the emergency department with admission pending. HPI General Mode of arrival: ambulatory. Date/Time Provider Initiated Documentation: 03/19/22 09:01. Limitations to Documentation: no limitations. Information obtained by: patient. History of Present Illness 61 year old F presents to the emergency department with the chief complaint of Cough, short of breath, surgery on March 15, described as moderate, Quality is described as dull, and is localized to the chest. Patient reports no radiation. Patient started experiencing this day(s) and it has been constant. Rest improves symptom(s), Movement worsens symptoms . Patient notes cough and shortness of breath; denies chest pain and syncope. Patient did receive the following treatments prior to arrival, none Related Data Home Medications Medication Instructions Recorded Confirmed clobetasol 0.05 % topical cream 1 applic topical DAILY 07/10/20 03/19/22 hydroxyzine pamoate 25 mg capsule 25 mg PO TID PRN 07/10/20 03/19/22 bupropion HCl 300 mg 24 hr tablet, 300 mg PO QAM #90 tabs 05/24/21 03/19/22 extended release prazosin 2 mg capsule 2 mg PO QHS #90 caps 05/24/21 03/19/22 zolpidem 10 mg tablet 10 mg PO QHS PRN sleep #90 tabs 10/15/21 03/19/22 fluoxetine 20 mg capsule (Prozac) 30 mg PO DAILY 11/05/21 03/19/22 topiramate 200 mg tablet 300 mg PO DAILY 11/05/21 03/19/22 cetirizine 10 mg tablet 10 mg PO DAILY #90 tabs 11/23/21 03/19/22 loperamide 2 mg capsule 2 mg PO Q6H PRN loose stool #14 11/23/21 03/19/22 caps omeprazole 20 mg capsule,delayed 20 mg PO DAILY #90 caps 11/23/21 03/19/22 release rizatriptan 10 mg disintegrating See Rx Instructions PO .COMPLEX 11/23/21 03/19/22 tablet #60 tabs simvastatin 10 mg tablet 10 mg PO DAILY #90 tabs 11/23/21 03/19/22 verapamil 180 mg 24 hr 180 mg PO DAILY #90 caps 11/23/21 03/19/22 capsule,extended release metoprolol succinate 25 mg 25 mg PO DAILY #90 tabs 12/27/21 03/19/22 tablet,extended release 24 hr aspirin 81 mg tablet,delayed 81 mg PO DAILY Prevent blood clot 03/15/22 03/19/22 release 14 days #14 tabs oxycodone 5 mg tablet 5 - 10 mg PO Q4H PRN moderate to 03/15/22 03/19/22 severe pain #12 tabs Previous Rx's Medication Instructions Recorded bupropion HCl 300 mg 24 hr tablet, 300 mg PO QAM #90 tabs 05/24/21 extended release prazosin 2 mg capsule 2 mg PO QHS #90 caps 05/24/21 zolpidem 10 mg tablet 10 mg PO QHS PRN sleep #90 tabs 10/15/21 cetirizine 10 mg tablet 10 mg PO DAILY #90 tabs 11/23/21 loperamide 2 mg capsule 2 mg PO Q6H PRN loose stool #14 11/23/21 caps omeprazole 20 mg capsule,delayed 20 mg PO DAILY #90 caps 11/23/21 release rizatriptan 10 mg disintegrating See Rx Instructions PO .COMPLEX 11/23/21 tablet #60 tabs simvastatin 10 mg tablet 10 mg PO DAILY #90 tabs 11/23/21 verapamil 180 mg 24 hr 180 mg PO DAILY #90 caps 11/23/21 capsule,extended release metoprolol succinate 25 mg 25 mg PO DAILY #90 tabs 12/27/21 tablet,extended release 24 hr aspirin 81 mg tablet,delayed 81 mg PO DAILY Prevent blood clot 03/15/22 release 14 days #14 tabs oxycodone 5 mg tablet 5 - 10 mg PO Q4H PRN moderate to 03/15/22 severe pain #12 tabs Allergies Allergy/AdvReac Type Severity Reaction Status Date / Time morphine Allergy Verified 03/19/22 09:31 General Stated Complaint: RespSymp MAXIMINO: 2 Review of Systems Narrative: Developed a cough and had 1 episode of blood flecked sputum, fever x1. Short of breath with walking. Immunized against COVID. 8 systems were reviewed and otherwise negative PFSH All Active Problems (Updated 03/19/22 @ 11:53 by Regino Rodriguez MD) Pneumonia (Acute) Hypoxia (Acute) Depressive disorder (Acute) Insomnia (Acute) Hypertension (Acute) Cubital tunnel syndrome, bilateral (Acute) Hyperlipidemia (Acute) Scab (Acute) Asymmetric tonsils (Acute) Low back pain (Acute) Wart (Acute) Weight gain (Acute) Intractable migraine with aura without status migrainosus (Acute) Abnormal mammogram (Acute) Breast mass, right (Acute) Left knee pain (Acute) Arthritis of right hip (Acute) Chronic renal insufficiency (Acute) Trochanteric bursitis of right hip (Acute) Labral tear of right hip joint (Acute) Iliotibial band syndrome of right side (Acute) Tear of right gluteus medius tendon (Acute) Medical History (Updated 03/19/22 @ 11:53 by Regino Rodriguez MD) Atopic dermatitis Congenital anomaly of integument Eating disorder Fibrocystic breast disease in female Fibromyalgia Generalized anxiety disorder GERD (gastroesophageal reflux disease) History of back problems History of palpitations Hyperlipidemia Inflammatory dermatosis Jaw pain Knee pain, left Left hip pain (~12/16/18) 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 Loss of appetite Lumbago with sciatica, right side Malaise and fatigue Microscopic colitis Mixed hyperlipidemia Obesity Osteoarthritis of knee Primary osteoarthritis PTSD (post-traumatic stress disorder) Retrograde amnesia Rotator cuff injury (~03/07/20) left Salivary gland disease Sialoadenitis Tinea corporis Well adult health check Surgical History (Updated 03/15/22 @ 08:38 by Gilma Weaver RN) Artificial knee joint present H/O abdominal hysterectomy (~1985) H/O bilateral salpingo-oophorectomy (~1985) H/O foot surgery (~2007) LEFT H/O hernia repair H/O total knee replacement 03/03/17 (L) 08/31/10 (R) History of back surgery (~2000) 2000 SPINAL FUSION: L5, S1 WITH METAL History of cholecystectomy (~02/23/11) History of right knee joint replacement History of surgical procedure on mouth (~10/20/17) LEFT Hx of colonoscopy Hx of repair of left rotator cuff Hx of shoulder surgery (~03/07/20) 03/07/20L SHOULDER ARTHROSCOPY W/RCR S/P injection of botulinum toxin (~01/10/17) @ [facility] [place] FOR MIGRAINES Family History Father , 69 Heart disease Diabetes Hx of kidney disease Gout Alcohol abuse Hyperlipidemia Hypertension Substance abuse Mother , 82 Hypertension Breast cancer Substance abuse Brother Hypertension Bipolar 1 disorder Alcohol abuse Cancer STOMACH Depression Substance abuse Sister Breast cancer Hyperlipidemia Hypertension Sister , 4 Leukemia Brother Alcohol abuse Substance abuse Social History (Updated 01/21/22 @ 16:38 by Светлана Kay) Smoking/Tobacco Use Status: Former Tobacco Use tobacco type: cigarettes Quit Date: 10/20/94 Second Hand Exposure: Yes Smoking risk assessment performed?: Yes Alcohol Intake: never Drug use: Never Substance use type: does not use Household members: spouse Housing: apartment current occupation: none Pets and animals: Yes Pets and animals: dog(s) Sexually active: Yes Current gender identity: female What is your relationship status?: How often do you talk on the phone with friends or family?: never How often do you get together with friends or relatives?: never How often do you attend denominational or caodaism services?: decline to answer Do you belong to any clubs or organized social groups?: no Panel score (0-1 are the most socially isolated patients): 1 What type of physical activity do you participate in: walking Duration: 15-30 minutes/day Do you feel safe at home: Yes Do you feel safe in your relationship?: Yes Exam Narrative Exam Narrative: GEN: awake, alert, oriented 3. Pleasant, well groomed, interactive. HEAD: Normocephalic, atraumatic ENT: Mucous membranes moist, oropharynx unremarkable, External ear exam unremarkable EYES: PERRL, EOMI NECK: Full ROM, no AMINAH, no menigismus CHEST/RESP: Nontender, diminished throughout, question rhonchi, difficult over air removal distant for room. CARDIOVASCULAR: RRR, no murmur, rub letty. 2+ Rad pulse bilateral ABDOMEN: Soft, nontender, no mass. +Bowel sounds EXT: Full ROM, no edema, no rash. R supero-lateral thigh with healing surgical incisions Neuro: Grossly normal neurologic exam, conversant, interactive. Psych: Speech fluent, thoughts congruent, affect normal Course Vital Signs Vital signs: Vital Signs Pulse 92 H 03/19/22 08:57 Respiratory Rate 03/19/22 08:57 Blood Pressure 141/71 H 03/19/22 08:57 Pulse Oximetry 89 L 03/19/22 08:57 Pulse 92 H 03/19/22 08:57 Respiratory Rate 03/19/22 08:57 Blood Pressure 141/71 H 03/19/22 08:57 Blood Pressure Position Sitting 03/19/22 08:57 Pulse Oximetry 89 L 03/19/22 08:57 Oxygen Delivery Method Room Air 03/19/22 08:57 Oxygen Flow Rate 0 03/19/22 08:57
[2022-03-19] MEDS: Normal Saline 1,000 ML 150 ML IV ×2 (09:45→17:52)
[2022-03-19] MEDS: Normal Saline Flush 10 ML SYR IVP (09:45)
[2022-03-19 10:04] LABS: Abs Immature Grans 0.07 10^3/uL (0.0-0.06); Absolute Basophil Count 0.02 10^3/uL (0.0-0.2); Absolute Eosinophil Count 0.11 10^3/uL (0.0-0.7); Absolute Lymphocyte Count 0.79 10^3/uL (1.2-3.4); Absolute Neutrophil Count 9.58 10^3/uL (1.2-6.7); Basophils % 0.2; HCT 37.1 % (36.0-46.0); HGB 11.4 g/dL (11.2-15.7); Immature Grans % 0.6; MCH 28.4 pg (27.0-33.0); MCHC 30.7 % (32.0-36.0); MCV 92 fL (80-95); MPV 10.6 fL (8.0-11.0); Monocytes % 6.2; Platelet Count 178 10^3/uL (130-400); RBC 4.02 10^6/uL (3.93-5.22); RDW 13.6 % (11.7-14.6); RDW-SD 45.9 fL; WBC 11.27 10^3/uL (4.4-10.8)
[2022-03-19 10:16] LABS: ALT 16 U/L (14-59); AST 17 U/L (15-37); Alkaline Phosphatase 79 U/L (46-116); Anion Gap 8.9 mmol/L (3-11); BUN 22 mg/dL (7-18); Bilirubin, Total 0.4 mg/dL (0.2-1.0); CO2 24.1 mmol/L (21.0-32.0); CREATININE 1.2 mg/dL (0.55-1.02); Calcium 8.6 mg/dL (8.5-10.1); Chloride 109 mmol/L (98-107); Estimated GFR 45.52 (mL/min/1.73m2); Glucose 107 mg/dL (74-106); Potassium 3.9 mmol/L (3.5-5.1); Sodium 142 mmol/L (136-145); Total Protein 7.3 g/dL (6.4-8.2)
--- NOTE | 2022-03-19 10:33 | DI.RAD_ITS ---
Exam(s) XR CHEST 2V PA LATERAL EXAM: XR CHEST 2V PA LATERAL CLINICAL HISTORY: Cough, hypoxia. TECHNIQUE: 2D digital imaging was performed. COMPARISON: No exams were available for comparison FINDINGS: 2 views: There is cardiomegaly. Mediastinum not widened There is infiltrate throughout the right lung and there is also nodular infiltrate in the mid left deanna ng. There are no obvious pleural effusions. IMPRESSION: Bilateral infiltrates, diffuse on the right side and more focal on the left side. No obvious pleural effusions. DATA REPOSITORY: RADIATION DOSE DELIVERED:
[2022-03-19 10:34] LABS: D-Dimer 1259 ng/mlFEU (<500)
[2022-03-19 11:02] LABS: Troponin I < 50 ng/L (<or=60)
[2022-03-19 12:21] LABS: COVID-19 PCR Negative (Negative); Influenza A PCR Negative (Negative); Influenza B PCR Negative (Negative); RSV PCR Negative (Negative)
[2022-03-19] MEDS: PIPERACILLIN/TAZO 3.375 GM in Normal Saline 50 ML IVPB ×2 (13:08→19:51)
[2022-03-19] MEDS: oxyCODONE 5 MG TAB PO (15:10)
[2022-03-19] MEDS: Enoxaparin 40 MG/0.4 ML SYR SC (15:43)
--- NOTE | 2022-03-19 15:45 | RT.EKG_ITS ---
APPROVED REPORT Exam: Resting ECG Reason for Exam: chest pain Patient Location: I HR:78 bpm ECG Measurements Heart Rate 78 AXIS ME 186 P 38 QRSd 103 QRS -11 QT 430 T 58 QTc 490 Conclusion Sinus rhythm...normal P axis, V-rate 50- 99 Borderline prolonged QT interval...QTc >485mS Baseline wander in lead(s) V6
--- NOTE | 2022-03-19 16:28 | W.PM.HP.N ---
Date of service: 03/19/22 Time of Service: 15:28 Assessment and Plan Assessment and plan (1) Pneumonia: Status: Acute Assessment and plan: Bilateral infiltrates. Cont Zosyn. IS MOnitor WBC count. (2) Hypoxia: Status: Acute Assessment and plan: Pneumonia likely but consider pulmonary embolism. Wells score indicates moderate risk. No DVT seen in RLE. CTA chest ordered. Supplemental O2. IS. (3) Hypertension: Status: Acute Assessment and plan: Cont metoprolol and verapamil. Monitor Qualifiers: Hypertension type: essential hypertension Qualified Code(s): I10 - Essential (primary) hypertension (4) Hyperlipidemia: Status: Acute Assessment and plan: Cont simvastatin. Qualifiers: Hyperlipidemia type: mixed hyperlipidemia Qualified Code(s): E78.2 - Mixed hyperlipidemia (5) Costochondritis: Status: Acute Assessment and plan: Lidoderm patch and prn acetaminophen. (6) Iliotibial band syndrome of right side: Status: Acute Assessment and plan: s/p surgical repair on 03/15/22. Surgical site looks clean/dry/no erythema. (7) PTSD (post-traumatic stress disorder): Assessment and plan: Cont clonazepam BID, fluoxetine, Zyprexa, prazosin. History of Present Illness History of Present Illness Chief Complaint: Shortness of breath, cough. Narrative: This is a 61 yo female with a PMH of recent surgery for iliotibial band release on the right, morbid obesity, migraine HAs, HLD, HTN. She presented with c/o shortness of breath and cough. Sputum production x2 that was bloody. She had surgery on 03/15/22 for IT band release / was intubated. She had a fever last Friday night and then today. She c/o upper mid-sternal pain with cough or compression. No N/V/abd pain. In the ED her RA O2 saturation was 88-90%. WBC count 11.2. Creatinine 1.2. Trop negative. D-dimer 1259. CXR with Right-sided infiltrate and nodular infiltrate in mid left lung. Zosyn initiated in the ED. Review of Systems All systems reviewed & are unremarkable except as noted in HPI and below PFSH All Active Problems (Updated 03/19/22 @ 16:42 by Felipe Maddox MD) Costochondritis (Acute) Pneumonia (Acute) Hypoxia (Acute) Depressive disorder (Acute) Insomnia (Acute) Hypertension (Acute) Cubital tunnel syndrome, bilateral (Acute) Hyperlipidemia (Acute) Scab (Acute) Asymmetric tonsils (Acute) Low back pain (Acute) Wart (Acute) Weight gain (Acute) Intractable migraine with aura without status migrainosus (Acute) Abnormal mammogram (Acute) Breast mass, right (Acute) Left knee pain (Acute) Arthritis of right hip (Acute) Chronic renal insufficiency (Acute) Trochanteric bursitis of right hip (Acute) Labral tear of right hip joint (Acute) Iliotibial band syndrome of right side (Acute) Tear of right gluteus medius tendon (Acute) Medical History Atopic dermatitis Congenital anomaly of integument Eating disorder Fibrocystic breast disease in female Fibromyalgia Generalized anxiety disorder GERD (gastroesophageal reflux disease) History of back problems History of palpitations Hyperlipidemia Inflammatory dermatosis Jaw pain Knee pain, left Left hip pain (~12/16/18) [facility] current use of opiate analgesic Loss of appetite Lumbago with sciatica, right side Malaise and fatigue Microscopic colitis Mixed hyperlipidemia Obesity Osteoarthritis of knee Primary osteoarthritis PTSD (post-traumatic stress disorder) Retrograde amnesia Rotator cuff injury (~03/07/20) left Salivary gland disease Sialoadenitis Tinea corporis Well adult health check Surgical History Artificial knee joint present H/O abdominal hysterectomy (~1985) H/O bilateral salpingo-oophorectomy (~1985) H/O foot surgery (~2007) LEFT H/O hernia repair H/O total knee replacement 03/03/17 (L) 08/31/10 (R) History of back surgery (~2000) 2000 SPINAL FUSION: L5, S1 WITH METAL History of cholecystectomy (~02/23/11) History of right knee joint replacement History of surgical procedure on mouth (~10/20/17) LEFT Hx of colonoscopy Hx of repair of left rotator cuff Hx of shoulder surgery (~03/07/20) 03/07/20L SHOULDER ARTHROSCOPY W/RCR S/P injection of botulinum toxin (~01/10/17) @ [facility] [place] [facility]RA[facility]ES Family History Father , 69 Heart disease Diabetes Hx of kidney disease Gout Alcohol abuse Hyperlipidemia Hypertension Substance abuse Mother , 82 Hypertension Breast cancer Substance abuse Brother Hypertension Bipolar 1 disorder Alcohol abuse Cancer STOMACH Depression Substance abuse Sister Breast cancer Hyperlipidemia Hypertension Sister , 4 Leukemia Brother Alcohol abuse Substance abuse Social History Smoking/Tobacco Use Status: Former Tobacco Use tobacco type: cigarettes Quit Date: 10/20/94 Second Hand Exposure: Yes Smoking risk assessment performed?: Yes Alcohol Intake: never Drug use: Never Substance use type: does not use Household members: spouse Housing: apartment current occupation: none Pets and animals: Yes Pets and animals: dog(s) Sexually active: Yes Current gender identity: female What is your relationship status?: How often do you talk on the phone with friends or family?: never How often do you get together with friends or relatives?: never How often do you attend mosque or jehovah's witness services?: decline to answer Do you belong to any clubs or organized social groups?: no Panel score (0-1 are the most socially isolated patients): 1 What type of physical activity do you participate in: walking Duration: 15-30 minutes/day Do you feel safe at home: Yes Do you feel safe in your relationship?: Yes Meds Allergies and Home Medications Allergies Allergy/AdvReac Type Severity Reaction Status Date / Time morphine Allergy Verified 03/19/22 09:31 Home Medications Medication Instructions Recorded Confirmed Type clobetasol 0.05 % topical cream 1 applic topical DAILY 07/10/20 03/19/22 History hydroxyzine pamoate 25 mg capsule 25 mg PO TID PRN 07/10/20 03/19/22 History prazosin 2 mg capsule 2 mg PO QHS #90 caps 05/24/21 03/19/22 Rx zolpidem 10 mg tablet 10 mg PO QHS PRN sleep #90 tabs 10/15/21 03/19/22 Rx cetirizine 10 mg tablet 10 mg PO DAILY #90 tabs 11/23/21 03/19/22 Rx loperamide 2 mg capsule 2 mg PO Q6H PRN loose stool #14 11/23/21 03/19/22 Rx caps omeprazole 20 mg capsule,delayed 20 mg PO DAILY #90 caps 11/23/21 03/19/22 Rx release rizatriptan 10 mg disintegrating See Rx Instructions PO .COMPLEX 11/23/21 03/19/22 Rx tablet #60 tabs simvastatin 10 mg tablet 10 mg PO DAILY #90 tabs 11/23/21 03/19/22 Rx verapamil 180 mg 24 hr 180 mg PO DAILY #90 caps 11/23/21 03/19/22 Rx capsule,extended release metoprolol succinate 25 mg 25 mg PO DAILY #90 tabs 12/27/21 03/19/22 Rx tablet,extended release 24 hr aspirin 81 mg tablet,delayed 81 mg PO DAILY Prevent blood clot 03/15/22 03/19/22 Rx release 14 days #14 tabs oxycodone 5 mg tablet 5 - 10 mg PO Q4H PRN moderate to 03/15/22 03/19/22 Rx severe pain #12 tabs clonazepam 1 mg tablet 1 mg PO BID 03/19/22 03/19/22 History fluoxetine 40 mg capsule 40 cap PO DAILY 03/19/22 03/19/22 History olanzapine 10 mg tablet 10 mg PO HS 03/19/22 03/19/22 History propranolol 20 mg tablet 20 mg PO BID 03/19/22 03/19/22 History topiramate 100 mg tablet 100 mg PO HS 03/19/22 03/19/22 History Exam Narrative Exam Narrative: Lying bed. Pleasant. Const General: cooperative and no acute distress Nutritional Appearance: obese Orientation: alert and oriented x3 Eyes General: appearance normal, both eyes and all related structures Sclera: sclerae normal Chest Chest: tenderness (costochondral margins of upper sternum. ) Resp Effort & Inspection: normal respiratory effort Auscultation: clear to auscultation bilaterally and diminished lung sounds Cardio Rate: regular rate Rhythm: regular rhythm Heart Sounds: S1 normal and S2 normal GI Inspection: obesity Palpation: soft and nontender Skin General skin exam: no rashes or lesions noted Wounds: wounds noted (well healing surg wounds R proximal lateral thigh) Extrem General: no pedal edema and no calf tenderness Psych Appearance: grossly normal Mood: congruent mood Affect: normal affect Results Labs Result diagrams: 03/19/22 10:00 03/19/22 10:00 Labs: Laboratory Results - last 24 hr 03/19/22 03/19/22 03/19/22 10:00 10:00 10:00 WBC 11.27 H RBC 4.02 Hgb 11.4 Hct 37.1 MCV 92 MCH 28.4 MCHC 30.7 L RDW 13.6 Plt Count 178 MPV 10.6 Immature Gran % 0.6 Neutrophils % 85.0 Lymphocytes % 7.0 Monocytes % 6.2 Eosinophils % 1.0 Basophils % 0.2 Nucleated RBC % 0.0 Absolute Neutrophils 9.58 H Absolute Lymphocytes 0.79 L Absolute Monocytes 0.70 Absolute Eosinophils 0.11 Absolute Basophils 0.02 D-Dimer 1259 H Sodium 142 Potassium 3.9 Chloride 109 H Carbon Dioxide 24.1 Anion Gap 8.9 BUN 22 H Creatinine 1.2 H Estimated GFR/1.73 m2 45.52 Glucose 107 H Calcium 8.6 Total Bilirubin 0.4 AST 17 ALT 16 Alkaline Phosphatase 79 Troponin I Total Protein 7.3 Albumin 3.0 L COVID-19 Source SARS-CoV-2 (PCR) Influenza Type A (PCR) Influenza Type B (PCR) RSV (PCR) 03/19/22 03/19/22 10:00 11:24 WBC RBC Hgb Hct MCV MCH MCHC RDW Plt Count MPV Immature Gran % Neutrophils % Lymphocytes % Monocytes % Eosinophils % Basophils % Nucleated RBC % Absolute Neutrophils Absolute Lymphocytes Absolute Monocytes Absolute Eosinophils Absolute Basophils D-Dimer Sodium Potassium Chloride Carbon Dioxide Anion Gap BUN Creatinine Estimated GFR/1.73 m2 Glucose Calcium Total Bilirubin AST ALT Alkaline Phosphatase Troponin I < 50 Total Protein Albumin COVID-19 Source Not Applicable SARS-CoV-2 (PCR) Negative Influenza Type A (PCR) Negative Influenza Type B (PCR) Negative RSV (PCR) Negative Last Vital Signs Temp 38.2 C H 03/19/22 15:34 Pulse 81 03/19/22 15:34 Resp 32 H 03/19/22 15:34 BP 146/80 H 03/19/22 15:34 Pulse Ox 97 03/19/22 15:34
[2022-03-19 16:29] LABS: Troponin I < 50 ng/L (<or=60)
--- NOTE | 2022-03-19 17:19 | DI.VRAD_ITS ---
Addendum created by John Yancey MD on 03/19/2022 5:22:44 PM EDT: Findings were discussed with Elena Herbert NP at 03/19/2022 5:21 PM EDT. Initial report created on 03/19/2022 5:18:29 PM EDT: PROCEDURE INFORMATION: Exam: CTA Chest With Contrast Exam date and time: 03/19/2022 4:45 PM Age: 61 years old Clinical indication: Other: Hemoptysis, elevated d dimer TECHNIQUE: Imaging protocol: Computed tomographic angiography of the chest with contrast. 3D rendering (Not supervised by radiologist): MIP and/or 3D reconstructed images were created by the technologist. Contrast material: 320; Contrast volume: 100 ml; Contrast route: INTRAVENOUS (IV); COMPARISON: CR XR CHEST 2V PA LATERAL 03/19/2022 10:32 AM FINDINGS: Pulmonary arteries: No filling defects within the pulmonary arteries are identified to suggest pulmonary embolism, although evaluation is limited due to breathing motion artifact. Aorta: Unremarkable. No aortic aneurysm. No aortic dissection. Lungs: Central airways are patent. There is no bronchiectasis or bronchiolectasis. There are multifocal regions patchy airspace opacity within all lobes of the right lung with superimposed tiny nodular branching airspace opacities and surrounding ground-glass opacity, consistent with bronchopneumonia. There are also regions of mild patchy ground-glass opacity within the left upper lobe. Pleural spaces: There are tiny bilateral layering pleural effusions, left greater than right. There is no evidence of pneumothorax. Heart: Unremarkable. No cardiomegaly. No pericardial effusion. Lymph nodes: There is no evidence of lymphadenopathy. Diaphragm: Findings suggest a tiny sliding hiatal hernia. Gallbladder and bile ducts: There has been a cholecystectomy. Bones/joints: There is multilevel [id number] spondylosis/hyperostosis throughout the mid and lower thoracic spine. There is mild anterior wedging of multiple vertebra in this region which appears chronic. No acute fractures are identified. Soft tissues: Unremarkable. IMPRESSION: 1. No pulmonary embolism identified. 2. Multifocal regions of patchy and nodular branching airspace opacities with surrounding ground-glass opacities, as described above, consistent with bronchopneumonia. 3. Tiny layering bilateral pleural effusions. Dictated and Authenticated by: John Yancey MD. Ordering:JOSE Wang MD
[2022-03-19] MEDS: Acetaminophen 325 MG TAB PO (17:55)
[2022-03-19 17:56] LABS: Lab Add On Test DONE
[2022-03-19 18:15] LABS: NT-proBNP 886 pg/mL (<300)
[2022-03-19] MEDS: Lidocaine 5% Patch 1 PATCH TP (18:27)
[2022-03-19] MEDS: Propranolol 20 MG TAB PO (19:50)
[2022-03-19] MEDS: Simvastatin 10 MG TAB PO (19:50)
[2022-03-19] MEDS: clonazePAM 1 MG TAB PO (19:51)
[2022-03-19] MEDS: Prazosin 1 MG CAP 2 MG PO (22:03)
[2022-03-19] MEDS: Zolpidem 10 MG TAB PO (22:04)
[2022-03-19] MEDS: Topiramate 50 MG TAB 100 MG PO (22:04)
[2022-03-19] MEDS: OLANZapine 10 MG TAB PO (23:11)
[2022-03-20] MEDS: Normal Saline 1,000 ML 150 ML IV (00:52)
[2022-03-20] MEDS: Acetaminophen 325 MG TAB PO ×3 (02:04→18:05)
[2022-03-20] MEDS: PIPERACILLIN/TAZO 3.375 GM in Normal Saline 50 ML IVPB ×4 (02:05→19:59)
[2022-03-20 06:49] LABS: Abs Immature Grans 0.06 10^3/uL (0.0-0.06); Absolute Basophil Count 0.02 10^3/uL (0.0-0.2); Absolute Eosinophil Count 0.18 10^3/uL (0.0-0.7); Absolute Lymphocyte Count 0.94 10^3/uL (1.2-3.4); Absolute Monocyte Count 0.68 10^3/uL (0.1-0.8); Basophils % 0.3; Eosinophils % 2.5; HCT 29.4 % (36.0-46.0); Immature Grans % 0.8; Lymphocytes % 13.1; MCH 28.3 pg (27.0-33.0); MCHC 30.6 % (32.0-36.0); MCV 93 fL (80-95); MPV 10.4 fL (8.0-11.0); Monocytes % 9.5; Neutrophils % 73.8; Platelet Count 165 10^3/uL (130-400); RBC 3.18 10^6/uL (3.93-5.22); RDW 13.7 % (11.7-14.6); WBC 7.18 10^3/uL (4.4-10.8)
[2022-03-20 07:12] VITALS: BP 115/72; PULSE 71; RESP 22; TEMP 36.5; O2SAT 97
[2022-03-20] MEDS: Metoprolol CR 25 MG TABCR PO (08:37)
[2022-03-20] MEDS: Cetirizine 10 MG TAB PO (08:37)
[2022-03-20] MEDS: Propranolol 20 MG TAB PO ×2 (08:37→19:58)
[2022-03-20] MEDS: clonazePAM 1 MG TAB PO ×2 (08:37→19:58)
[2022-03-20] MEDS: Verapamil C.R. 180 MG TABCR PO (08:37)
[2022-03-20] MEDS: Aspirin E.C. 81 MG TABEC PO (08:37)
[2022-03-20] MEDS: Omeprazole 20 MG CAPCR PO (08:37)
[2022-03-20] MEDS: FLUoxetine 20 MG CAP 40 MG PO (08:41)
--- NOTE | 2022-03-20 11:50 | CHAPLAIN ---
Alina explained that she'd had hip surgery last week, then was in the ED over the weekend and diagnosed with pneumonia. She was surprised how quickly she began not feeling well. Prior to her hip surgery, she moved to [place], [place], then came back her for her hip surgery and now this hospitalization. She is in touch with family by phone.
[2022-03-20] MEDS: Clobetasol 0.05% CREAM 15 GM TUBE TP (12:03)
--- NOTE | 2022-03-20 12:13 | PHA.REVIEW ---
Pharmacy Admission Review - Admission Clinical Review (Last Reviewed 03/19/22 @ 16:37 by Felipe Maddox MD) Costochondritis (Acute) Pneumonia (Acute) Hypoxia (Acute) Hypertension (Acute) Hyperlipidemia (Acute) Iliotibial band syndrome of right side (Acute) morphine Allergy (Verified 03/19/22 09:31) Resuscitation Status Full Code Height 5 ft 4 in Weight 108.862 kg - Renal Dosing Renal Dosing: BUN 22 mg/dL (7-18) H 03/19/22 10:00 Creatinine 1.2 mg/dL (0.55-1.02) H 03/19/22 10:00 Medications needing adjustments: Reviewed (Crcl ~58.6 mL/min using adjusted body weight. Current meds okay.) - Anticoagulation Anticoagulation: Hgb 9.0 g/dL (11.2-15.7) L D 03/20/22 06:05 Hct 29.4 % (36.0-46.0) L 03/20/22 06:05 Plt Count 165 10^3/uL (130-400) 03/20/22 06:05 Creatinine 1.2 mg/dL (0.55-1.02) H 03/19/22 10:00 DVT Prophylaxis: Intervened Medications: Enoxaparin (The recommended enoxaparin dosing for pts with a BMI over 40 is 40 mg BID or 0.5 mg/kg BID. Mentioned to provider.) Therapeutic Anticoagulation: N/A - Opiate Usage Scheduled Bowel Reg ordered if on Opiates?: No (has prn med ordered) - Relevant Labs Sodium 142 mmol/L (136-145) 03/19/22 10:00 Potassium 3.9 mmol/L (3.5-5.1) 03/19/22 10:00 Chloride 109 mmol/L (98-107) H 03/19/22 10:00 Electrolytes, C-Reactive P, ESR: Reviewed - DM Control DM Control: Glucose 107 mg/dL (74-106) H 03/19/22 10:00 Insulin Dosing: N/A (No DM noted in medical history, A1c was 5.3 on 01/21/22) - Heart Failure/OK Heart Failure/OK: Troponin I < 50 ng/L (<or=60) 03/19/22 16:07 NT-Pro-B Natriuret Pep 886 pg/mL (<300) H 03/19/22 16:07 EF%, AURELIO's, B-Blockers, Diuretics: Reviewed - BP Control BP Control: Blood Pressure 115/72 If elevated: Reviewed (BP was up and down a bit yesterday, but within normal limits so far today.) - Qtc Review If Elevated: Reviewed (QTc 498 on admission, pt currently has hydroxyzine ordered) - IV to PO Switch IV Medications: Reviewed - Home Meds Home Med List reviewed: Intervened (Pharmacist on yesterday did medrec as it looked like the home med list in [facility] was not up to date.) Relevent Home Meds Not ordered & why?: rizatriptan (PRN) - Current meds Current Medication Order Review: Reviewed - Comments Comments/Follow Ups: Watch BP, SCr, labs and for med changes (watch for possible renal dose adjustments, avoid additional QT prolonging meds) Antibiotic Activity - Pharmacy Antibiotic Review Pharmacy Antibiotic Activity: Reviewed, no change (Zosyn ordered for pneumonia (day 2 starts this afternoon).)
--- NOTE | 2022-03-20 12:56 | W.PM.PROGNOT ---
Date of Service Date of service: 03/20/22 Time of Service: 11:56 Assessment and Plan Assessment and plan (1) Pneumonia: Status: Acute Assessment and plan: Bilateral infiltrates. Cont Zosyn. IS WBC count normalized. (2) Hypoxia: Status: Acute Assessment and plan: Pneumonia likely but consider pulmonary embolism. Wells score indicates moderate risk. No DVT seen in RLE. CTA chest negative. Supplemental O2. IS. (3) Hypertension: Status: Acute Assessment and plan: Cont metoprolol and verapamil. Monitor Qualifiers: Hypertension type: essential hypertension Qualified Code(s): I10 - Essential (primary) hypertension (4) Hyperlipidemia: Status: Acute Assessment and plan: Cont simvastatin. Qualifiers: Hyperlipidemia type: mixed hyperlipidemia Qualified Code(s): E78.2 - Mixed hyperlipidemia (5) Costochondritis: Status: Acute Assessment and plan: Lidoderm patch and prn acetaminophen. (6) Iliotibial band syndrome of right side: Status: Acute Assessment and plan: s/p surgical repair on 03/15/22. Surgical site looks clean/dry/no erythema. (7) PTSD (post-traumatic stress disorder): Assessment and plan: Cont clonazepam BID, fluoxetine, Zyprexa, prazosin. Subjective Subjective Patient reports: no new complaints, tolerating a regular diet and afebrile (Currently afebrile. Temp of 38.2 yesterday at 15:34 and 17:56.); denies nausea or vomiting Exam Narrative Exam Narrative: Lying bed. Pleasant. Const General: cooperative and no acute distress Nutritional Appearance: obese Orientation: alert and oriented x3 Eyes General: appearance normal, both eyes and all related structures Sclera: sclerae normal Chest Chest: tenderness (costochondral margins of upper sternum. ) Resp Effort & Inspection: normal respiratory effort Auscultation: diminished lung sounds and rhonchi (Right lung mcqueen) Cardio Rate: regular rate Rhythm: regular rhythm Heart Sounds: S1 normal and S2 normal GI Inspection: obesity Palpation: soft and nontender Skin General skin exam: no rashes or lesions noted Wounds: wounds noted (well healing surg wounds R proximal lateral thigh) Extrem General: no pedal edema and no calf tenderness Psych Appearance: grossly normal Mood: congruent mood Affect: normal affect Objective Last Vital Signs Temp 36.5 C 03/20/22 07:12 Pulse 71 06/01/22 07:12 Resp 22 03/20/22 07:12 BP 115/72 03/20/22 07:12 Pulse Ox 97 03/20/22 07:12 Laboratory Results - last 24 hr 03/19/22 03/19/22 03/19/22 16:07 16:07 Unknown WBC RBC Hgb Hct MCV MCH MCHC RDW Plt Count MPV Immature Gran % Neutrophils % Lymphocytes % Monocytes % Eosinophils % Basophils % Nucleated RBC % Absolute Neutrophils Absolute Lymphocytes Absolute Monocytes Absolute Eosinophils Absolute Basophils Troponin I < 50 NT-Pro-B Natriuret Pep 886 H Add-On Test Request DONE 03/20/22 06:05 WBC 7.18 RBC 3.18 L Hgb 9.0 L D Hct 29.4 L MCV 93 MCH 28.3 MCHC 30.6 L RDW 13.7 Plt Count 165 MPV 10.4 Immature Gran % 0.8 Neutrophils % 73.8 Lymphocytes % 13.1 Monocytes % 9.5 Eosinophils % 2.5 Basophils % 0.3 Nucleated RBC % 0.0 Absolute Neutrophils 5.30 Absolute Lymphocytes 0.94 L Absolute Monocytes 0.68 Absolute Eosinophils 0.18 Absolute Basophils 0.02 Troponin I NT-Pro-B Natriuret Pep Add-On Test Request
--- NOTE | 2022-03-20 13:41 | PDOC.CMIN ---
- If Service Date Differs Date of service: 03/20/22 Time of Service: 13:41 Care Management Initial Assess REASON FOR HOSPITALIZATION:: Pneumonia PAST MEDICAL HISTORY/PAST SURGICAL HISTORY:: All Active Problems (Updated 03/19/22 @ 16:42 by Felipe Maddox MD). Costochondritis (Acute). Pneumonia (Acute). Hypoxia (Acute). Depressive disorder (Acute). Insomnia (Acute). Hypertension (Acute). Cubital tunnel syndrome, bilateral (Acute). Hyperlipidemia (Acute). Scab (Acute). Asymmetric tonsils (Acute). Low back pain (Acute). Wart (Acute). Weight gain (Acute). Intractable migraine with aura without status migrainosus (Acute). Abnormal mammogram (Acute). Breast mass, right (Acute). Left knee pain (Acute). Arthritis of right hip (Acute). Chronic renal insufficiency (Acute). Trochanteric bursitis of right hip (Acute). Labral tear of right hip joint (Acute). Iliotibial band syndrome of right side (Acute). Tear of right gluteus medius tendon (Acute). Medical History . Atopic dermatitis. Congenital anomaly of integument. Eating disorder. Fibrocystic breast disease in female. Fibromyalgia. Generalized anxiety disorder. GERD (gastroesophageal reflux disease). History of back problems. History of palpitations. Hyperlipidemia. Inflammatory dermatosis. Jaw pain. Knee pain, left. Left hip pain (~12/16/18). 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 Loss of appetite. Lumbago with sciatica, right side. Malaise and fatigue. Microscopic colitis. Mixed hyperlipidemia. Obesity. Osteoarthritis of knee. Primary osteoarthritis. PTSD (post-traumatic stress disorder). Retrograde amnesia. Rotator cuff injury (~03/07/20). left. Salivary gland disease. Sialoadenitis. Tinea corporis. Well adult health check. Surgical History . Artificial knee joint present. H/O abdominal hysterectomy (~1985). H/O bilateral salpingo-oophorectomy (~1985). H/O foot surgery (~2007). LEFT. H/O hernia repair. H/O total knee replacement. 03/03/17 (L). 08/31/10 (R). History of back surgery (~2000). 2000 SPINAL FUSION: L5, S1 WITH METAL. History of cholecystectomy (~02/23/11). History of right knee joint replacement. History of surgical procedure on mouth (~10/20/17). LEFT. Hx of colonoscopy. Hx of repair of left rotator cuff. Hx of shoulder surgery (~03/07/20). 03/07/20L SHOULDER ARTHROSCOPY W/RCR. S/P injection of botulinum toxin (~01/10/17). @ [facility] – [place] [facility] PREVIOUS FUNCTIONAL STATUS/SOCIAL/FAMILY SUPPORTS:: Alina lives with her Felipe. Last week the couple moved from their home in [place] to a [facility] in [place], [place]. Alina is independent at baseline, she is able to drive and she does not use any assistive devices. CURRENT FUNCTIONAL STATUS:: Alina was laying in bed when CM met with her. She is on currently on 2L NC. She is alert, oriented and able to engage in conversation for a short period of time before becoming sob. ADVANCE DIRECTIVES:: None on file. CM will offer forms. Has patient been provided with info about the portal/API?: Yes Did the patient sign up for the portal?: Yes (Prior to admission) CODE STATUS:: Full Code INSURANCE COVERAGE / FINANCIAL ISSUES:: Medicare CURRENT HOME/COMMUNITY SERVICES/EQUIPMENT:: Lives in a [facility] PRIMARY CARE PHYSICIAN:: [facility] POTENTIAL DISCHARGE NEEDS:: Discharge plan of care, follow up appointments PATIENT/FAMILY EDUCATION NEEDS:: Review discharge instructions, limitations, medications and plan to follow up with community providers. ask me three. TRANSPORTATION:: Via private vehicle with family. PLAN:: Anticipate, Alina will discharge home via private vehicle when medically ready. Alina will follow up with her community providers and discharge plan of care as prescribed. Alina will also follow up with Ortho as previously scheduled.
[2022-03-20] MEDS: Normal Saline Flush 10 ML SYR IVP (14:09)
[2022-03-20] MEDS: Normal Saline 500 ML 30 ML IV (14:10)
[2022-03-20] MEDS: Lidocaine 5% Patch 1 PATCH TP (18:06)
[2022-03-20 18:15] VITALS: TEMP 38.6
[2022-03-20 18:45] VITALS: TEMP 38.1
[2022-03-20 19:50] VITALS: BP 131/77; PULSE 85; RESP 20; TEMP 37.3; O2SAT 95
[2022-03-20] MEDS: Enoxaparin 40 MG/0.4 ML SYR SC (19:58)
[2022-03-20] MEDS: Simvastatin 10 MG TAB PO (19:58)
[2022-03-20] MEDS: oxyCODONE 5 MG TAB PO (19:58)
[2022-03-20] MEDS: Topiramate 50 MG TAB 100 MG PO (22:20)
[2022-03-20] MEDS: Prazosin 1 MG CAP 2 MG PO (22:20)
[2022-03-20] MEDS: OLANZapine 10 MG TAB PO (22:21)
[2022-03-20 23:30] VITALS: BP 121/70; PULSE 85; RESP 20; TEMP 36.6; O2SAT 95
[2022-03-21] MEDS: PIPERACILLIN/TAZO 3.375 GM in Normal Saline 50 ML IVPB ×4 (02:49→19:39)
[2022-03-21 07:01] LABS: Abs Immature Grans 0.08 10^3/uL (0.0-0.06); Absolute Basophil Count 0.02 10^3/uL (0.0-0.2); Absolute Eosinophil Count 0.22 10^3/uL (0.0-0.7); Absolute Lymphocyte Count 0.78 10^3/uL (1.2-3.4); Absolute Monocyte Count 0.75 10^3/uL (0.1-0.8); Absolute Neutrophil Count 4.32 10^3/uL (1.2-6.7); Basophils % 0.3; Eosinophils % 3.6; HCT 30.6 % (36.0-46.0); HGB 9.3 g/dL (11.2-15.7); Immature Grans % 1.3; Lymphocytes % 12.6; MCH 28.1 pg (27.0-33.0); MCHC 30.4 % (32.0-36.0); MCV 92 fL (80-95); MPV 9.4 fL (8.0-11.0); Monocytes % 12.2; Platelet Count 176 10^3/uL (130-400); RBC 3.31 10^6/uL (3.93-5.22); RDW 13.8 % (11.7-14.6); RDW-SD 46.5 fL; WBC 6.17 10^3/uL (4.4-10.8)
[2022-03-21 07:42] VITALS: BP 128/82; PULSE 78; RESP 18; TEMP 36.9; O2SAT 95
[2022-03-21] MEDS: Loperamide 2 MG CAP PO (07:55)
[2022-03-21] MEDS: Omeprazole 20 MG CAPCR PO (07:55)
[2022-03-21] MEDS: Normal Saline Flush 10 ML SYR IVP ×2 (08:25→12:16)
[2022-03-21] MEDS: Enoxaparin 40 MG/0.4 ML SYR SC ×2 (08:26→19:39)
[2022-03-21] MEDS: Metoprolol CR 25 MG TABCR PO (08:27)
[2022-03-21] MEDS: Verapamil C.R. 180 MG TABCR PO (08:27)
[2022-03-21] MEDS: Cetirizine 10 MG TAB PO (08:27)
[2022-03-21] MEDS: FLUoxetine 20 MG CAP 40 MG PO (08:27)
[2022-03-21] MEDS: clonazePAM 1 MG TAB PO ×2 (08:27→19:39)
[2022-03-21] MEDS: Propranolol 20 MG TAB PO ×2 (08:27→19:40)
[2022-03-21] MEDS: Aspirin E.C. 81 MG TABEC PO (08:28)
--- NOTE | 2022-03-21 09:00 | CMPROGNOTE_ITS ---
- If Service Date Differs Date of service: 03/21/22 Time of Service: 09:00 Care Management Progress Note S/O: Alina is awake, alert and appropriate. Cultures are pending and a sputum culture and acapella devise is ordered today. Alina is currently 95% on 2L NC. Her O2 is being weaned and she will transition to oral abx when able. She has a follow up appointment with Dr. Fried on Friday for a surgical procedure she had on 03/15/22. A: 61 year old female admitted to [facility] on 03/20/22 for Pneumonia. P:Anticipate, Alina will discharge home via private vehicle when medically ready. Alina will follow up with her community providers and discharge plan of care as prescribed. Alina will also follow up with Ortho as previously scheduled.
--- NOTE | 2022-03-21 11:10 | PT.INIE ---
Date of service: 03/21/22 Time of Service: 10:23 PT Notes Visit Reasons: Pneumonia Physical Therapy Inpatient Initial Evaluation Date: 03/21/2022 Referring Doctor: Felipe Maddox MD PT Orders: PT CONSULT: Eval/Treat Precautions: Fall. Standard. On continuous 3 L of oxygen via NC. Per Dr. Estevez as of 03/15/2022: WBAT on R LE with AD. May gradually advance to full range of motion and activity. Patient Profile/Admitting Diagnosis: Alina is a 61-year-old female who presented to the ED on 03/19/2022 with chief complaints of shortness of breath and cough. Patient is status post right iliotibial band release and right trochanteric bursectomy on postoperative day 7 due to iliotibial band syndrome, trochanteric bursitis, and gluteal tendon tear. Admitting diagnoses include pneumonia, hypoxia, hypertension, hyperlipidemia, costochondritis chondritis, and PTSD. PMHX: All Active Problems?(Updated 03/19/22 @ 16:42 by Felipe Maddox MD) Costochondritis (Acute) Pneumonia (Acute) Hypoxia (Acute) Depressive disorder (Acute) Insomnia (Acute) Hypertension (Acute) Cubital tunnel syndrome, bilateral (Acute) Hyperlipidemia (Acute) Scab (Acute) Asymmetric tonsils (Acute) Low back pain (Acute) Wart (Acute) Weight gain (Acute) Intractable migraine with aura without status migrainosus (Acute) Abnormal mammogram (Acute) Breast mass, right (Acute) Left knee pain (Acute) Arthritis of right hip (Acute) Chronic renal insufficiency (Acute) Trochanteric bursitis of right hip (Acute) Labral tear of right hip joint (Acute) Iliotibial band syndrome of right side (Acute) Tear of right gluteus medius tendon (Acute) Medical History? Atopic dermatitis Congenital anomaly of integument Eating disorder Fibrocystic breast disease in female Fibromyalgia Generalized anxiety disorder GERD (gastroesophageal reflux disease) History of back problems History of palpitations Hyperlipidemia Inflammatory dermatosis Jaw pain Knee pain, left Left hip pain (~12/16/18) senior care current use of opiate analgesic Loss of appetite Lumbago with sciatica, right side Malaise and fatigue Microscopic colitis Mixed hyperlipidemia Obesity Osteoarthritis of knee Primary osteoarthritis PTSD (post-traumatic stress disorder) Retrograde amnesia Rotator cuff injury (~03/07/20) leftSalivary gland disease Sialoadenitis Tinea corporis Well adult health check Surgical History? Artificial knee joint present H/O abdominal hysterectomy (~1985) H/O bilateral salpingo-oophorectomy (~1985) H/O foot surgery (~2007) LEFTH/O hernia repair H/O total knee replacement 03/03/17 (L) 08/31/10 (R) History of back surgery (~2000) 2000 SPINAL FUSION: L5, S1 WITH METAL History of cholecystectomy (~02/23/11) History of right knee joint replacement History of surgical procedure on mouth (~10/20/17) LEFT Hx of colonoscopy Hx of repair of left rotator cuff Hx of shoulder surgery (~03/07/20) 03/07/20L? SHOULDER ARTHROSCOPY W/RCR S/P injection of botulinum toxin (~01/10/17) @ [facility] Social History/Home Situation: Lives with in a private home with no stairs. Independent in all aspects of ADLs prior to admission. Not on oxygen supplementation prior to admission. Equipment Owned/DME: None Subjective: Reports of good relief from severe preoperative pain now down to 1-2/10 in the right hip area. Complained of burning sensation in her chest towards the end of PT session, Nurse Ariel aware. Reported fatigue from having walked to and from the prison room immediate prior to PT visit today. Objective: General Observation: Supine in bed. On 3 L of oxygen via NC. Mental Status: Alert and oriented as to person, place, time, and purpose. Able to pay attention, focus, and respond appropriately. Pain: 1?2/10 right in hip Vital Signs: WNL closely monitored by nursing staff ROM: Right Upper Extremity: Shoulder Flexion WFL. Shoulder abduction WFL. Elbow flexion WFL. Wrist flexion WFL. Functional opening and closing of hand WFL. Left Upper Extremity: Shoulder Flexion WFL. Shoulder abduction WFL. Elbow flexion WFL. Wrist flexion WFL. Functional opening and closing of hand WFL. Right Lower Extremity: Hip flexion up to 90 degrees in supine with SLR. Hip abduction 30 degrees. Knee flexion WFL. Ankle dorsiflexion WFL. Ankle plantarflexion WFL. Left Lower Extremity: Hip flexion up to 90 degrees in supine with SLR. Hip abduction 30 degrees. Knee flexion WFL. Ankle dorsiflexion WFL. Ankle plantarflexion WFL. Strength: Right Upper Extremity: Shoulder flexors 4/5. Shoulder abductors 4/5. Elbow flexors 5/5. Elbow extensors 4/5. Order To Delivery Supervisor strong. Left Upper Extremity: Shoulder flexors 4-/5. Shoulder abductors 4-/5. Elbow flexors 5/5. Elbow extensors 4/5. Order To Delivery Supervisor strong. Right Lower Extremity: Hip flexors 3-/5. Hip abductors 3-/5. Knee flexors 4/5. Knee extensors 4/5. Ankle dorsiflexors 4/5. Ankle plantarflexors 4/5. Left Lower Extremity: Hip flexors 5/5. Hip abductors 5/5. Knee flexors 5/5. Knee extensors 4-/5. Ankle dorsiflexors 4-/5. Ankle plantarflexors 5/5. Bed Mobility/Transfers: Rolling stand by assist Supine to sit stand by assist Sit to supine stand by assist Sit to stand stand by assist Stand to sit contact guard assist Gait: Patient just returned from walking to and from the shower room about [address] using her FWW with nursing staff with not much help, conatct guard assist. She reported fatigue from that and requested to walk again this afternoon. THERA EX to R hip: 1. posterior pelvic tilt with abdominal bracing x 10 2. bridging with abdominal bracing x 10 3. SLR to 90 x 10 4. heel slides x 10 5. hip abduction to about 30 degrees x 10 6. gluteal sets 5 sh x 10 MANUAL THERAPY to R hip and thigh: STM to R lateral thigh from hip joint area to lateral R knee x 2 minutes for three reps during rest time from doing exercise above Balance: Static Sitting: Normal Dynamic Sitting: Normal Static Standing: Fair Dynamic Standing: Fair Special Tests: Mobility Limitations Standardized Measure [facility] AM-PAC 6 clicks Basic Mobility Inpatient Short Form: Raw Score: 20 CMS Score: 36% deficit Informed Consent/Education: Patient was instructed in purpose of PT consult and plan of care. Agreeable to proceed with established PT POC to achieve personal goals. Assessment: Patient demonstrates functional mobility decline, decreased activity tolerance, and generalized weakness from above diagnoses. Has had good relief from pain in the right hip since surgery. Patient presents with clinical signs and symptoms consistent with current/admitting diagnoses that have resulted to mobility limitations, gait instability, generalized weakness, and overall ADL decline as demonstrated by the following impairment level findings: 1. Decreased strength to B UE/LE major muscle groups 2. Impaired sitting/standing balance 3. Impaired activity tolerance 4. Limitation of joint range of motion R hip 5. Fatigue Impairments are contributing to the following functional limitations: 1. Decline in bed mobility skills 2. Decline in transfer skills 3. Difficulty with ambulation without assistive device and physical assistance 4. Increased completion time for mobility ADL performance 5. Increased risk for falls 6. Difficulty with managing steps alone safely Patient is assessed as a complexity based on the following: History: 61-year-old female with past medical history as indicated above Examination: Demonstrable impairment in strength, balance, and mobility level with underlying impairments and functional limitations as exhibited above as well as deficit score of 36% utilizing the [facility] Mobility Inpatient Short Form Presentation: Evolving Decision Makin moderate complexity Goals: Goals X1 week 1. Supine-Sit independent 2. Sit-Supine independent 3. Sit-Stand independent 4. Stand-Sit independent with no AD 5. Bed-Chair independent with no AD 6. Chair-Bed independent with no AD 7. Independent gait on level surface with use of FWW for at least 500 feet without report of pain nor dyspnea 8. Good static and dynamic standing balance/tolerance Plan of Care/Treatment Plan: 1-2x/day, 7 days/week x 1 week. Plan of care has been reviewed with the SHEET METAL SUPERVISOR providing the service under Physical Therapy direction. Initiate Physical Therapy intervention for pain management as needed, strengthening, bed mobility, transfers, gait, stairs, balance training, and use of assistive device. DISCHARGE RECOMMENDATIONS: Home when medically cleared by hospitalist. May benefit from outpatient PT services to continue rehabilitation for right hip. TREATMENT CODE/TIME: 99477 x 20 minutes, 03932 x 10 minutes, 08217 x 15 minutes beginning at 11:10 AM. Thank you for the opportunity to participate in the care of this patient. Ivette Valdivia PT, DPT, CLT [facility] [place], [place]
[2022-03-21] MEDS: Azithromycin 250 MG TAB 500 MG PO (11:25)
[2022-03-21] MEDS: Clobetasol 0.05% CREAM 15 GM TUBE TP (11:26)
[2022-03-21 15:22] VITALS: BP 132/78; PULSE 73; RESP 16; TEMP 37.4; O2SAT 97
--- NOTE | 2022-03-21 15:51 | W.PM.PROGNOT ---
Date of Service Date of service: 03/21/22 Time of Service: 14:51 Assessment and Plan Assessment and plan (1) Pneumonia: Status: Acute Assessment and plan: Continue Zosyn and azithromycin. Encourage patient to use incentive spirometry and Acapella. Attempt to obtain sputum for culture. We will ask respiratory therapy to continue to wean oxygen as tolerated and get an amatory pulse oximetry in the morning. If she has no fevers overnight and her oxygen level has improved to the point where she no longer requires oxygen then she can be discharged home on oral antibiotic pending results of her blood cultures being negative (2) Costochondritis: Status: Acute Assessment and plan: Continue Lidoderm patch and acetaminophen as needed (3) Hypertension: Status: Acute Assessment and plan: Continue metoprolol and verapamil Qualifiers: Hypertension type: essential hypertension Qualified Code(s): I10 - Essential (primary) hypertension (4) Depressive disorder: Status: Acute Assessment and plan: Continue fluoxetine, plan as p.m., pain and Topamax (5) Hyperlipidemia: Status: Acute Assessment and plan: Continue to simvastatin Qualifiers: Hyperlipidemia type: mixed hyperlipidemia Qualified Code(s): E78.2 - Mixed hyperlipidemia Subjective Subjective Interval history since last seen: Patient feels less short of breath when she came in here but still gets dyspneic with activity. She has a cough that is nonproductive. She has been using her incentive spirometry. She has been weaned down to 1 L/min per nasal cannula.She was still having fevers as of last night up to 38.1. However she is been afebrile throughout today. She is asked how soon she can go home. I told her I like to see her afebrile for 24 hours and hopefully have her weaned off oxygen before returning home. She is a former smoker but quit 35 years ago and only smoked for about 7 or 8 years. She does not live with a smoker. She is not sure whether she been vaccinated against pneumonia or not. She is fully vaccinated against COVID-19. Exam Narrative Exam Narrative: Older middle-aged white female lying in bed in semi-Mccall position watching TV. No acute respiratory distress. She is able to speak in full sentences. Neck supple no JVD Lungs clear anteriorly posteriorly she has some rales at the right lung base to midlung mcqueen no rhonchi or wheezes Left chest is clear to auscultation Heart is regular rate and rhythm Abdomen soft nontender nondistended Extremities without edema Objective Last Vital Signs Temp 37.4 C 03/21/22 15:22 Pulse 73 03/21/22 15:22 Resp 16 03/21/22 15:22 BP 132/78 03/21/22 15:22 Pulse Ox 97 03/21/22 15:22 Laboratory Results - last 24 hr 03/21/22 07:00 WBC 6.17 RBC 3.31 L Hgb 9.3 L Hct 30.6 L MCV 92 MCH 28.1 MCHC 30.4 L RDW 13.8 Plt Count 176 MPV 9.4 Immature Gran % 1.3 Neutrophils % 70.0 Lymphocytes % 12.6 Monocytes % 12.2 Eosinophils % 3.6 Basophils % 0.3 Nucleated RBC % 0.0 Absolute Neutrophils 4.32 Absolute Lymphocytes 0.78 L Absolute Monocytes 0.75 Absolute Eosinophils 0.22 Absolute Basophils 0.02
[2022-03-21] MEDS: Lidocaine 5% Patch 1 PATCH TP (18:05)
[2022-03-21] MEDS: Acetaminophen 325 MG TAB PO (18:07)
[2022-03-21] MEDS: Simvastatin 10 MG TAB PO (19:40)
[2022-03-21] MEDS: oxyCODONE 5 MG TAB PO (20:35)
[2022-03-21] MEDS: Prazosin 1 MG CAP 2 MG PO (21:44)
[2022-03-21] MEDS: Topiramate 50 MG TAB 100 MG PO (21:44)
[2022-03-21] MEDS: OLANZapine 10 MG TAB PO (21:45)
[2022-03-21 23:01] LABS: Legionella Ag Detection Urine Negative (Negative)
[2022-03-21 23:10] VITALS: BP 96/62; PULSE 70; RESP 16; TEMP 36.4; O2SAT 94
[2022-03-21] MEDS: Zolpidem 10 MG TAB PO (23:45)
[2022-03-22] MEDS: PIPERACILLIN/TAZO 3.375 GM in Normal Saline 50 ML IVPB ×2 (05:00→12:11)
[2022-03-22 07:37] VITALS: BP 110/74; PULSE 73; RESP 18; TEMP 36.4; O2SAT 95
[2022-03-22] MEDS: Aspirin E.C. 81 MG TABEC PO (08:03)
[2022-03-22] MEDS: Metoprolol CR 25 MG TABCR PO (08:04)
[2022-03-22] MEDS: Propranolol 20 MG TAB PO (08:04)
[2022-03-22] MEDS: clonazePAM 1 MG TAB PO (08:04)
[2022-03-22] MEDS: Cetirizine 10 MG TAB PO (08:04)
[2022-03-22] MEDS: FLUoxetine 20 MG CAP 40 MG PO (08:04)
[2022-03-22] MEDS: Azithromycin 250 MG TAB PO (08:04)
[2022-03-22] MEDS: Omeprazole 20 MG CAPCR PO (08:04)
[2022-03-22] MEDS: Enoxaparin 40 MG/0.4 ML SYR SC (08:05)
[2022-03-22] MEDS: Verapamil C.R. 180 MG TABCR PO (08:05)
--- NOTE | 2022-03-22 08:36 | PDOC.CMPRO ---
- If Service Date Differs Date of service: 03/22/22 Time of Service: 08:36 Care Management Progress Note S/O: Alina was lying in bed with the HOB elevated when CM met with her. She is AAOX3 and easy to engage in conversation. She remains on IV abx and will transition to oral abx when able. She is afebrile and currently on 95% on RA. Alina reports that she is feeling much better and hoping to discharge home today if possible. A: 61 year old female admitted to [facility] on 03/20/22 for Pneumonia. P:Anticipate, Alina will discharge home via private vehicle when medically ready. Alina will follow up with her community providers and discharge plan of care as prescribed. Per PT, Alina may benefit from outpatient PT services to continue rehabilitation for right hip. Alina will also follow up with Ortho as previously scheduled.
[2022-03-22 09:10] VITALS: O2SAT 95
[2022-03-22 09:25] VITALS: PULSE 86; PULSE 96; RESP 16; RESP 18; O2SAT 88; O2SAT 94; O2SAT 95
[2022-03-22] MEDS: Acetaminophen 325 MG TAB PO (09:27)
--- NOTE | 2022-03-22 09:31 | RESPIRATORY ---
RT performed exercise oximetry. Pt did not meet requirements for home O2. Pt stated she would like to go home today and did not feel that she needed any supplemental O2. Pt states her is always home with her and she is confident she can perform ADL independently with walker.
[2022-03-22] MEDS: Normal Saline Flush 10 ML SYR IVP ×2 (09:57→12:13)
--- NOTE | 2022-03-22 10:53 | PT.INTREAT ---
Date of service: 03/22/22 Time of Service: 09:50 PT Notes Visit Reasons: Pneumonia Inpatient Physical Therapy Treatment Note [facility] Date: 03/22/2022 PRECAUTIONS: Activity as tolerated, WBAT R SUBJECTIVE: Alina is pleasant and agreeable to participating in PT. She states that she hopes to return home today. She has been ambulating independently within her room and feels safe. OBJECTIVE: PAIN: No complaints of pain BED MOBILITY/TRANSFERS Supine-sit: I Sit-supine: I Sit-stand: I Stand-sit: I Bed-Chair: I Chair-bed: I GAIT Assistive Device: No AD Weight bearing: WBAT R Assist: S Distance: 15' +150' Deviation: Antalgic gait THEREX: Patient was instructed in a core stabilization and lower extremity strengthening program, completed in a supine position, to include PPT with TrA activation, bridging with core engagement, SLR, heel slides, hip abduction and glute sets. TOILETING: Patient toileted independently ASSESSMENT: Patient tolerated session well, without complaint. She was able to tolerate gait training without use of assistive device support, although demonstrates antalgic gait. Patient demonstrates independence with bed mobility, transfers and short distance ambulation at this time. PLAN: Patient to discharge home later today, per provider. No services recommended at this time. TREATMENT CODE/TIME: 28 minutes; 25204, [id number] (09:50)
--- NOTE | 2022-03-22 13:00 | DSE_ITS ---
Date of service: 03/22/22 Time of Service: 12:00 DS: Diagnosis Discharge Diagnosis (1) Pneumonia: Status: Acute Asessment and Plan: 61-year-old female with previous history iliotibial band release, morbid obesity, migraine headaches, HLD, HTN presented with shortness of breath and cough L.A.M.A. purulent and bloody sputum production. Her iliotibial band release once on 03/15/2022 and required intubation. Fevers began on 03/16/2022. In emergency room she was found in room air saturation of 88 to 90% and white count of 11,200 with an elevated D-dimer of 1259. Chest x-ray showed right- sided infiltrate and nodular infiltrate mid left lung. Blood cultures were obtained on admission and came back no growth after 48 hours. Patient was started on Zosyn and azithromycin. Her leukocytosis resolved overnight to 7100. Because of elevated D-dimer and shortness of breath and hemoptysis she underwent a CT scan of her chest that showed no pulmonary embolic disease but evidence of multifocal pneumonitis. Patient was treated with Zosyn and azithromycin. After improvement in her oxygenation and improvement in her leukocytosis and having negative blood cultures the patient was feeling well enough that she wanted to return home. It is felt that she can be safely discharged on oral antibiotics. She was prescribed Augmentin 875 mg twice a day for 7 days along with azithromycin 250 mg daily for the next 4 day. She is to have a follow-up chest x-ray in 2 weeks. She would like to have this done on 04/03/2022 at the same time she comes back to [place] to see Dr. Estevez for her iliotibial band surgical follow-up. She will see her PCP on that same day. She should have follow-up blood work as well regarding her anemia. (2) Costochondritis: Status: Resolved Asessment and Plan: Patient chest pains improved w/ use of lidoderm and APAP (3) Hypertension: Status: Acute Asessment and Plan: no change in her home meds (Toprol XL, verapamil,) (4) Depressive disorder: Status: Acute Asessment and Plan: no change in her treatment w/ fluoxetine (5) Hyperlipidemia: Status: Acute Asessment and Plan: no change in her treatment of simvastatin (6) Iliotibial band syndrome of right side: Status: Acute Asessment and Plan: patient to follow up w/ Dr. Estevez on 04/03 (7) Anemia: Status: Acute Asessment and Plan: No evidence of active GI bleeding. Hb 11.4 gm on admission but dropped to 9.0 on 03/20 and remained at 9.3 gm at discharge. Recommend outpatient follow up CBC and anemia workup. Discharge Plan Disposition Patient Disposition: HOME Condition: Improving Discharge Details Reason For Visit: Pneumonia Admit Date/Time: 03/19/22 12:01 Admit Provider: Felipe Maddox Attending Provider: Felipe Maddox Primary Care Provider: Husam Krishna Home Meds and New Rx's Prescriptions: New azithromycin 250 mg Tablet 250 mg PO DAILY Qty: 4 0RF topiramate 50 mg Tablet 300 mg PO HS Qty: 0 0RF amoxicillin-pot clavulanate 875-125 mg tablet 1 tab PO BID Qty: 14 0RF Rx Instructions: take with food Continued prazosin 2 mg capsule 2 mg PO QHS Qty: 90 4RF clobetasol 0.05 % cream 1 applic topical DAILY hydroxyzine pamoate 25 mg capsule 25 mg PO TID PRN zolpidem 10 mg tablet 10 mg PO QHS PRN (Reason: sleep) Qty: 90 0RF cetirizine 10 mg tablet 10 mg PO DAILY Qty: 90 3RF loperamide 2 mg capsule 2 mg PO Q6H PRN (Reason: loose stool) Qty: 14 0RF omeprazole 20 mg capsule,delayed release(DR/EC) 20 mg PO DAILY Qty: 90 3RF rizatriptan 10 mg tablet,disintegrating See Rx Instructions PO .COMPLEX Qty: 60 0RF Rx Instructions: take 1 tab at onset of headache; if no relief may repeat 1 tab after at least 2 hrs; max = 3 tabs/24 hr PO simvastatin 10 mg tablet 10 mg PO DAILY Qty: 90 4RF verapamil 180 mg capsule,ext rel. pellets 24 hr 180 mg PO DAILY Qty: 90 3RF metoprolol succinate 25 mg tablet extended release 24 hr 25 mg PO DAILY Qty: 90 3RF aspirin 81 mg tablet,delayed release (DR/EC) 81 mg PO DAILY 14 Days Qty: 14 0RF oxycodone 5 mg tablet 5 - 10 mg PO Q4H MDD 30 mg PRN (Reason: moderate to severe pain) Qty: 12 0RF fluoxetine 40 mg capsule 40 cap PO DAILY clonazepam 1 mg tablet 1 mg PO BID olanzapine 10 mg tablet 10 mg PO HS propranolol 20 mg tablet 20 mg PO BID topiramate 100 mg tablet 100 mg PO HS Discharge Instructions Instructions: Bacterial Pneumonia (DC) Additional Instructions: All your antibiotics which includes Augmentin and azithromycin. Use your incentive spirometer and your Acapella device to help mobilize any mucus and to improve your airflow. If you have high fever or shortness of breath please seek immediate medical attention. Please obtain a chest x-ray at the time of your follow-up on April 03, 2022. Please follow-up with your PCP in 10 to 14 days. Stand Alone Forms: Nursing Discharge Form Referrals: Radiology [Other] - 04/03/22 9:30 am (Radiology appointment April 03, 2022 at 9:30 am ) Husam Krishna NP [Primary Care Provider] - 04/03/22 11:40 am John Estevez MD [ [facility] STAFF PHYSICIAN] - 04/03/22 10:30 am Activity:: Activity as Tolerated Equipment/Supplies:: No Equipment Needed Diet:: Normal Diet Discharge Orders Discharge Orders: Discharge Order (Routine); Ordered 03/22/22 Ordered By: Patrick Hooks Other Ambulatory Orders: XR chest 2V PA & lateral (Routine) Timeframe: [id number] Location: None Selected Ordered By: Patrick Hooks Discharge Data Discharge Date/Time-TO BE ENTERED AT DEPARTURE: 03/22/22 14:09 DS: Summary Time Spent with Patient providing and/or coordinating discharge services: Less than 30 minutes Specific discharge activities: Interview/exam of patient; review of discharge instructions, completion of prescriptions/discharge instructions; discussion w/ nursing and CM; documentation of hospital visit Status at Discharge Functional status at discharge: independent ambulation Overall status at discharge: patient is progressing back to baseline Mental Status: mental status grossly normal Speech and Movement: speech and movement normal Mood: congruent mood Affect: normal affect Exam Narrative Exam Narrative: Alina is sit up in the bedside alert and oriented not wearing oxygen. She is not short of breath. She denies any chest pain nausea or vomiting. Lungs are clear anteriorly posteriorly she has some bibasilar rales no rhonchi or wheezing Heart is regular rate and rhythm Abdomen soft and nontender nondistended Psych Mental Status: mental status grossly normal Speech and Movement: speech and movement normal Mood: congruent mood Affect: normal affect DS: Data Vitals/I&O Vitals and I&O: Vital Signs Temperature 36.4 C L 03/22/22 07:37 Temperature Source Tympanic 03/22/22 07:37 Pulse 73 03/22/22 07:37 Pulse Rhythm Regular 03/22/22 08:00 Pulse 82 03/19/22 13:50 Respiratory Rate 18 03/22/22 07:37 Respiratory Effort Non-Labored 03/22/22 08:00 Respiratory Depth Normal 03/22/22 08:00 Respiratory Pattern Normal 03/22/22 08:00 Blood Pressure 110/74 03/22/22 07:37 Blood Pressure Mean 71 03/19/22 13:16 Blood Pressure Position Sitting 03/19/22 08:57 Pulse Oximetry 95 03/22/22 09:10 Oxygen Delivery Method Room Air 03/22/22 09:10 Oxygen Flow Rate 0 03/22/22 09:10 Pain Level 6 03/22/22 09:27 Comment 03/20/22 18:15 Intake & Output 03/21/22 03/22/22 03/22/22 23:59 11:59 23:59 Intake Total 510 / 860 300 / 300 Output Total 400 / 400 Balance 510 / 110 -100 / -100 Intake: IV 150 / 250 50 / 50 Oral 360 / 610 250 / 250 Output: Urine 400 / 400 Other: Urine Appearance Clear Clear Stool Size Moderate Small Stool Characteristics Soft Soft Voiding Methods Bedside Commode Bedside Commode Data Completed and Pending Labs on day of discharge: Labs from last 24 hours 03/20/22 20:00 Urine Legionella Ag Negative Preliminary micro results at discharge 03/20/22 18:47 Blood Culture - Preliminary Blood NO GROWTH 24 HOURS 03/20/22 18:47 Blood Culture - Preliminary Blood NO GROWTH 24 HOURS PFSH All Active Problems (Updated 03/23/22 @ 07:55 by Patrick Hooks) Anemia (Acute) Pneumonia (Acute) Depressive disorder (Acute) Insomnia (Acute) Hypertension (Acute) Cubital tunnel syndrome, bilateral (Acute) Hyperlipidemia (Acute) Scab (Acute) Asymmetric tonsils (Acute) Low back pain (Acute) Wart (Acute) Weight gain (Acute) Intractable migraine with aura without status migrainosus (Acute) Abnormal mammogram (Acute) Breast mass, right (Acute) Left knee pain (Acute) Arthritis of right hip (Acute) Chronic renal insufficiency (Acute) Trochanteric bursitis of right hip (Acute) Labral tear of right hip joint (Acute) Iliotibial band syndrome of right side (Acute) Tear of right gluteus medius tendon (Acute) Medical History Atopic dermatitis Congenital anomaly of integument Eating disorder Fibrocystic breast disease in female Fibromyalgia Generalized anxiety disorder GERD (gastroesophageal reflux disease) History of back problems History of palpitations Hyperlipidemia Inflammatory dermatosis Jaw pain Knee pain, left Left hip pain (~12/16/18) intermediate card tender current use of opiate analgesic Loss of appetite Lumbago with sciatica, right side Malaise and fatigue Microscopic colitis Mixed hyperlipidemia Obesity Osteoarthritis of knee Primary osteoarthritis PTSD (post-traumatic stress disorder) Retrograde amnesia Rotator cuff injury (~03/07/20) left Salivary gland disease Sialoadenitis Tinea corporis Well adult health check Surgical History Artificial knee joint present H/O abdominal hysterectomy (~1985) H/O bilateral salpingo-oophorectomy (~1985) H/O foot surgery (~2007) LEFT H/O hernia repair H/O total knee replacement 03/03/17 (L) 08/31/10 (R) History of back surgery (~2000) 2000 SPINAL FUSION: L5, S1 WITH METAL History of cholecystectomy (~02/23/11) History of right knee joint replacement History of surgical procedure on mouth (~10/20/17) LEFT Hx of colonoscopy Hx of repair of left rotator cuff Hx of shoulder surgery (~03/07/20) 03/07/20L SHOULDER ARTHROSCOPY W/RCR S/P injection of botulinum toxin (~01/10/17) [place] [facility] [place] Family History Father , 69 Heart disease Diabetes Hx of kidney disease Gout Alcohol abuse Hyperlipidemia Hypertension Substance abuse Mother , 82 Hypertension Breast cancer Substance abuse Brother Hypertension Bipolar 1 disorder Alcohol abuse Cancer STOMACH Depression Substance abuse Sister Breast cancer Hyperlipidemia Hypertension Sister , 4 Leukemia Brother Alcohol abuse Substance abuse Social History Smoking/Tobacco Use Status: Former Tobacco Use tobacco type: cigarettes Quit Date: 10/20/94 Second Hand Exposure: Yes Smoking risk assessment performed?: Yes Alcohol Intake: never Drug use: Never Substance use type: does not use Household members: spouse Housing: apartment current occupation: none Pets and animals: Yes Pets and animals: dog(s) Sexually active: Yes Current gender identity: female What is your relationship status?: How often do you talk on the phone with friends or family?: never How often do you get together with friends or relatives?: never How often do you attend hoahaoism or adventism services?: decline to answer Do you belong to any clubs or organized social groups?: no Panel score (0-1 are the most socially isolated patients): 1 What type of physical activity do you participate in: walking Duration: 15-30 minutes/day Do you feel safe at home: Yes Do you feel safe in your relationship?: Yes
[2022-03-22] MEDS: Loperamide 2 MG CAP PO (13:11)
--- NOTE | 2022-03-22 14:04 | PDOC.CMDIS ---
- If Service Date Differs Date of service: 03/22/22 Time of Service: 14:04 LACE Index Scoring Tool - Questions: Length of Stay (in days): 3 Acuity (Admit via E.D.?): Yes E.D. Visits: 1 - Answers: Total Score: 7 Risk of Readmission: Low Risk Care Management Discharge Reason for Hospitalization: Pneumonia Discharge Plan: Discharge home via private vehicle with family. Please follow up with Ortho, Imaging and your PCP on 04/03/22 as scheduled.
[2022-03-23 16:31] LABS: Streptococcus Pneumoniae Ag, U Negative (Negative)
--- NOTE | 2022-03-29 12:21 | PT.INDS ---
PT Notes Visit Reasons: Pneumonia Inpatient Physical Therapy Discharge Summary Dates: 03/29/2022 Dates of Service: SUBJECTIVE: [] OBJECTIVE: [] Pain: [] ROM: [] L UE: [] R UE: [] L LE: [] R LE: [] STRENGTH: L UE: [] R UE: [] L LE: [] R LE: [] BED MOBILITY/TRANSFERS: Supine-sit [] Sit-supine [] Sit-stand [] Stand-sit [] Bed-Chair [] Chair-bed [] GAIT: BALANCE: Static sitting Dynamic sitting Static standing Dynamic standing SPECIAL TESTS: [] ASSESSMENT: [] GOALS ( Met / Not Met): [] Goals: [] DISCHARGE PLAN/RECOMMENDATIONS: [] [] Home with no services [] [] Home with services [specify] [] Home with outpatient PT [] [] SNF for continued rehabilitation [] [] Plant Supervisor Care [] [] SNF versus LTC based on ability to participate and progress []
--- NOTE | 2022-03-29 12:22 | INDS_ITS ---
PT Notes Visit Reasons: Pneumonia Inpatient Physical Therapy Discharge Summary Dates:) 03/29/2022 Dates of Service: March 21 to 2021 SUBJECTIVE: No complaints of pain offered. Anxious to return home OBJECTIVE: Pain: 0/10 on the VAS BED MOBILITY/TRANSFERS: Independent with assuming the supine to sitting to standing positions and vice versa GAIT: Ambulates without an assistive device with mild antalgia on the right for approximately 150 feet BALANCE: Static sitting good Dynamic sitting good Static standing good Dynamic standing good ASSESSMENT: Is now independent with bed mobility and ambulating independently without an assistive device with good pain control GOALS ( Met Goals: Return home DISCHARGE PLAN/RECOMMENDATIONS: [] [x] Home with no services [] [] Home with services [specify] [] Home with outpatient PT [] [] SNF for continued rehabilitation [] [] Nursing Home Care [] [] SNF versus LTC based on ability to participate and progress [] This document serves as a summary care. No patient services were provided on this day.
== END 2022-03-22 14:09 | disposition home or self-care (01) | DRG 194 ==
LOC: ER 12:30 → MS 14:11
PROVIDERS: Admitting Provider Family Medicine; Emergency Provider Emergency Medicine; PCP Nurse Practitioner Family; Visit Provider Family Medicine
DX: J18.9 Pneumonia, unspecified organism (principal); Z68.41 Body mass index [BMI] 40.0-44.9, adult; R09.02 Hypoxemia; E78.2 Mixed hyperlipidemia; M94.0 Chondrocostal junction syndrome [Tietze]; F43.10 Post-traumatic stress disorder, unspecified; E66.01 Morbid (severe) obesity due to excess calories; F32.A Depression, unspecified; G47.00 Insomnia, unspecified; D64.9 Anemia, unspecified; N60.19 Diffuse cystic mastopathy of unspecified breast; G56.23 Lesion of ulnar nerve, bilateral upper limbs; M54.50 Low back pain, unspecified; G43.109 Migraine with aura, not intractable, without status migrainosus; N18.9 Chronic kidney disease, unspecified; I12.9 Hypertensive chronic kidney disease with stage 1 through stage 4 chronic kidney disease, or unspecified chronic kidney disease; Z87.891 Personal history of nicotine dependence; Z96.653 Presence of artificial knee joint, bilateral; Z98.890 Other specified postprocedural states
CPT/HCPCS: 36415; 71275; 80053; 87040; 87449; 87637; 93005; 94618; 96361; 96365; 97110; 97162; 97530; 99285; J1650; 71046; 83880; 84484; 85025; 85379; 87899; 93010; 93971; 99223; 99232; 99233; 99238; J2543; J3490

== ENCOUNTER → 2022-04-03 01:33 | Outpatient (CLI) | payer MEDICARE, SELFPAY ==
--- NOTE | 2022-04-03 09:15 | DI.RAD_ITS ---
Exam(s) XR CHEST 2V PA LATERAL EXAM: XR CHEST 2V PA LATERAL CLINICAL HISTORY: F/U PNEUMONIA, J18.9. TECHNIQUE: 2D digital imaging was performed. COMPARISON: CR XR CHEST 2V PA LATERAL from 03/19/2022 FINDINGS: 2 views: Cardiomegaly again noted. The mediastinum is not widened. Previously present bilateral infiltrates cleared. Only minimal residual increased markings noted. N o pleural effusions. IMPRESSION: Significant improvement in the bilateral infiltrates which were evident on 03/19/2022.These have most ly resolved. There are no pleural effusions. Cardiomegaly again noted. No evidence of pulmonary edema. DATA REPOSITORY: RADIATION DOSE DELIVERED:
== END ==
PROVIDERS: PCP Nurse Practitioner Family; Visit Provider Internal Medicine
DX: J18.9 Pneumonia, unspecified organism (principal); I51.7 Cardiomegaly; Z47.89 Encounter for other orthopedic aftercare; M70.61 Trochanteric bursitis, right hip; M76.31 Iliotibial band syndrome, right leg; S76.011A Strain of muscle, fascia and tendon of right hip, initial encounter; X58.XXXA Exposure to other specified factors, initial encounter
CPT/HCPCS: 71046